=== PATIENT | male | born 1945 | race Caucasian/White ===

== ENCOUNTER 2019-03-12 10:58 | Inpatient (IN) | payer OTHER ==
[2019-03-12] VITALS (31 sets, daily range): BP systolic 63–101; BP diastolic 44–65
[~2019-03-12] VITALS: Ht 175.3 cm; Wt 126.0 kg
[2019-03-12] MEDS ORDERED: SODIUM CHLORIDE 0.9% 1,000 ML IVB ONE (11:05)
[2019-03-12] MEDS ORDERED: ETOMIDATE (2MG/ML) 20ML VIAL IV ONE ×2 (11:09→11:15)
[2019-03-12] MEDS ORDERED: SUCCINYLCHOLINE CHLORIDE 20 MG/ML 10ML VIAL IV ONE ×3 (11:10→12:30)
[2019-03-12] MEDS ORDERED: MIDAZOLAM DRIP 50 mg/50mL 50 ML IV ONE (11:16)
[2019-03-12] MEDS ORDERED: InsuLIN R (HUMAN) 100 UNITS in SODIUM CHL 0.9% 99 ML IV SCH ×2 (11:19→14:50)
[2019-03-12] MEDS ORDERED: DEXTROSE (50%) 50ML SYRG IV PRN ×2 (11:30→15:00)
[2019-03-12 12:00] LABS: Hematocrit 44.1 % (41.0-53.0); Hemoglobin 13.8 g/dL (13.5-17.5); Mean Corpuscular Hemoglobin 29.8 pg (28.0-32.0); Mean Corpuscular Hgb Conc. 31.2 g/dL (32.0-36.0); Mean Corpuscular Volume 95.6 fL (80.0-100.0); Platelet Count (auto) 261 10^3/uL (140-450); Red Blood Cells 4.61 10^6/uL (4.5-5.90); Red Cell Distribution Width 16.5 % (11.8-14.3); White Blood Cell 28.1 10^3/uL (4.4-10.8)
[2019-03-12 12:03] LABS: Basophils % (manual) 0 (0.0-2.0); Blast Cells 0; Eosinophils % (manual) 0 (0-7); Metamyelocytes % 0; Myelocytes % 0; Promyelocytes % 0; Reactive Lymphocytes 0
[2019-03-12] MEDS: ACCU-CHEK COMFORT CURVE STRIP VI SCH ×9 (12:12→23:59)
[2019-03-12 12:17] LABS: Band Neutrophils % (manual) 5; Lymphocytes % (manual) 4 (10.0-50.0); Monocytes % (manual) 4 (0-12)
[2019-03-12 12:26] LABS: Albumin 2.2 g/dL (3.4-5.0); Anion Gap 31 (5-15); Blood Urea Nitrogen 47 mg/dL (7-18); Calcium 9.4 mg/dL (8.5-10.1); Chloride 92 mmol/L (98-107); Magnesium 2.7 mg/dL (1.6-2.6); Potassium 3.4 mmol/L (3.5-5.1); Sodium 130 mmol/L (136-145)
[2019-03-12 12:29] LABS: Alanine Aminotransferase 14 U/L (16-61); Aspartate Aminotransferase 10 U/L (15-37); Bilirubin, Total 0.4 mg/dL (0.2-1.0); Blood Alcohol < 3.0 mg/dL (0-5); GFR African American 38 mL/min; GFR Non-African American 31 mL/min; Lactic Acid w/Reflex 2.5 mmol/L (0.4-2.0); Total Protein 6.7 g/dL (6.4-8.2)
[2019-03-12] MEDS: MIDAZOLAM DRIP 50 mg/50mL 50 ML IV SCH ×2 (12:30→23:36)
[2019-03-12 12:34] LABS: Alkaline Phosphatase 113 U/L (45-117)
[2019-03-12 12:38] LABS: BUN/Creatinine Ratio 21.3
[2019-03-12 12:39] LABS: Carbon Dioxide 7 mmol/L (21-32)
[2019-03-12] MEDS ORDERED: SODIUM BICARBONATE 8.4% INJ 50ML SYRINGE ONE ×2 (14:10→14:42)
[2019-03-12] MEDS ORDERED: SODIUM BICARBONATE 50ML VIAL 50 ML in SOD CHL 0.45% 1,000 ML IV SCH (14:30)
[2019-03-12] MEDS ORDERED: SODIUM BICARBONATE 8.4 % INJ 50ML VIAL IV ONE (14:30)
[2019-03-12] MEDS ORDERED: LEVOFLOXACIN 250MG 50 ML IV ONE (14:30)
[2019-03-12] MEDS ORDERED: CLINDAMYCIN 900MG IV 50 ML IV ONE (14:30)
[2019-03-12] MEDS ORDERED: LEVOFLOXACIN 500MG 100 ML IV SCH (14:31)
[2019-03-12] MEDS ORDERED: NOREPINEPHRINE 8 MG/250ML KIT 250 ML IV ONE (14:33)
[2019-03-12] MEDS ORDERED: MORPHINE SULF INJ 2 MG/ML SYRINGE 1ML IV PRN (15:00)
[2019-03-12] MEDS: SODIUM BICARBONATE 50ML VIAL 50 ML in SOD CHL 0.45% 1,000 ML IV SCH ×2 (15:00→22:00)
[2019-03-12] MEDS ORDERED: ALBUTEROL SULF 2.5 MG/0.5ML(0.5%) NEB SOLN NEB PRN (15:00)
[2019-03-12] MEDS ORDERED: PIPERACILLIN-TAZOB 3.375GM 100 ML IV ONE (15:00)
[2019-03-12] MEDS ORDERED: PROMETHAZINE HCL 25 MG/ML 1ML IV PRN (15:00)
[2019-03-12] MEDS ORDERED: NITROGLYCERIN 0.4 MG SL TAB SL PRN (15:00)
[2019-03-12] MEDS: FAMOTIDINE (10MG/ML) 2ML VL IV SCH (16:00)
[2019-03-12] MEDS: NOREPINEPHRINE 8 MG/250ML KIT 250 ML IV SCH (16:01)
--- NOTE | 2019-03-12 16:35 | NUR ---
REPORT Report received from Luh HARRIS awaiting for patient to arrive to room 107 to continue plan of care.
[2019-03-12] MEDS ORDERED: ATOR10TA52 PO (16:43)
[2019-03-12] MEDS ORDERED: TAMS0.4C36 PO (16:43)
[2019-03-12] MEDS ORDERED: DUTA0.5C11 PO (16:43)
[2019-03-12] MEDS ORDERED: FER325T PO (16:43)
[2019-03-12] MEDS ORDERED: METF-370 PO (16:43)
[2019-03-12 16:47] LABS: Amylase 382 U/L (25-115); Anion Gap 24 (5-15); Blood Urea Nitrogen 55 mg/dL (7-18); Calcium 9.8 mg/dL (8.5-10.1); Carbon Dioxide 11 mmol/L (21-32); Chloride 97 mmol/L (98-107); Sodium 132 mmol/L (136-145)
[2019-03-12] MEDS: POTASSIUM CHL 20MEQ/100ML 100 ML IV SCH ×2 (16:53→18:58)
[2019-03-12 16:57] LABS: BUN/Creatinine Ratio 23.6; GFR African American 35 mL/min; GFR Non-African American 29 mL/min; Lipase 5650 U/L (73-393)
[2019-03-12 17:15] LABS: Glucose 621 mg/dL (74-106); Potassium 2.8 mmol/L (3.5-5.1)
--- NOTE | 2019-03-12 18:15 | NUR ---
RECEIVED PATIENT Received patient from ER on [facility], placed in ICU bed and attached to bedside monitor for monitoring. Attempted to place NG/OG tube unsuccessful: oncoming nurse to be notified. No belongings with patient. Patient infusing Versed at 10mg, Levophed at 16mcg and .45NS with 1 amp of bicarb at 150ml/hr. SCD's on. Call light within reach and bed at lowest position.
[2019-03-12] MEDS: ALBUTEROL SULF 2.5 MG/0.5ML(0.5%) NEB SOLN NEB SCH (18:51)
[2019-03-12] MEDS: IPRATROPIUM BROM 0.5 MG/2.5ML INH SOL NEB SCH (18:51)
--- NOTE | 2019-03-12 19:00 | NUR ---
OPENING NOTE ASSUMED CARE OF PATIENT AT THIS TIME. REPORT RECEIVED FROM DAY SHIFT RN. POC REVIEWED. HEAD TO TOE ASSESSMENT COMPLETE, SEE INTERVENTION SPREADSHEET FOR COMPLETE DETAILS. RECEIVED PT INTUBATED, NO SEDATION. PUPILS 3 AND BRISK. NO COUGH OR GAG NOTED. RECEIVED PT ON LEVO AT 20 MCG, BICARB WITH 1 AMP AT 150 MLS/HR. RECEIVED PT IN A-FIB WITH RATE BETWEEN 110'S0-140'S. IV SITES BENIGN. NO ARCHER PRESENT. RECEIVED PT ON OMAR HUGGER. SUCTION AND BVM AT BEDSIDE. BED LOCKED AND IN LOWEST POSITION, SAFETY PRECAUTIONS IN PLACE. WILL MONITOR PT CAREFULLY.
[2019-03-12] MEDS: InsuLIN R (HUMAN) 100 UNITS in SODIUM CHL 0.9% 99 ML IV SCH (19:46)
--- NOTE | 2019-03-12 19:59 | NUR ---
DR. HILL RETURNED CONSULT PAGE. REQUEST FOR UROLOGY CART. SPOKE WITH GERIATRIC SOCIAL WORKER TO NOTIFY OF NEED FOR UROLOGY CART.
[2019-03-12] MEDS ORDERED: LIDOCAINE 2% JELLY 11ml (GLYDO) ONE (20:02)
[2019-03-12 20:03] LABS: BUN/Creatinine Ratio 25.3; Calcium 9.1 mg/dL (8.5-10.1)
[2019-03-12 20:13] LABS: Lactic Acid w/Reflex 2.8 mmol/L (0.4-2.0)
--- NOTE | 2019-03-12 20:14 | NUR ---
[address] by Dr[address] Davis. Michael think liquid coming from chaudhary tubing. Pt tolerated well.
[2019-03-12 20:42] LABS: Potassium 2.7 mmol/L (3.5-5.1)
--- NOTE | 2019-03-12 20:47 | NUR ---
SEDATION RESTARTED, VERSED STARTED AT 5 MG/HR. PT BREATHING OVER VENT AT RR 22. VENTILATOR ALARM SOUNDING.
[2019-03-12] MEDS: PIPERACILLIN-TAZOB 3.375GM 100 ML IV SCH (21:16)
[2019-03-12] MEDS ORDERED: InsuLIN REG 1unit/0.01ml Soln (100units/ml) ONE (21:45)
[2019-03-12] MEDS ORDERED: CLINDAMYCIN 600MG IV 50 ML IV SCH (22:00)
--- NOTE | 2019-03-12 22:29 | NUR ---
TEMP RECTAL TEMP 98.1. WARMING MEASURES D/C AT THIS TIME.
--- NOTE | 2019-03-12 22:59 | NUR ---
APS REPORT SPOKE WITH PARDEEP, . REPORT MADE. CASE #[id number]
--- NOTE | 2019-03-12 23:12 | NUR ---
URINE SAMPLE COLLECTED AND SENT TO LAB AT THIS TIME.
[2019-03-12 23:50] LABS: Amphetamine Screen, Urine NEGATIVE (NEGATIVE); Barbiturate Scree,Urine NEGATIVE (NEGATIVE); Benzodiazephine Screen, Urine POSITIVE (NEGATIVE); Cannabinoid Screen, Urine NEGATIVE (NEGATIVE); Cocaine Screen, Urine NEGATIVE (NEGATIVE); Opiate Scree,Urine NEGATIVE (NEGATIVE); Phencyclidine Screen, Urine NEGATIVE (NEGATIVE)
[2019-03-12 23:51] LABS: Urine Bacteria MANY /hpf (None Seen); Urine Blood 3+ /uL (Negative); Urine Specific Gravity 1.019 (1.001-1.035); Urine WBC 8341 /hpf (0 - 3); Urine WBC Clumps PRESENT /hpf (None Seen)
[2019-03-12 23:56] LABS: Protein, Urine 919.8 mg/dL (0.0-11.9)
[2019-03-13] VITALS (105 sets, daily range): BP systolic 81–137; BP diastolic 52–89
[2019-03-13] MEDS: CLINDAMYCIN 600MG IV 50 ML IV SCH ×2 (00:09→08:42)
[2019-03-13] MEDS: ALBUTEROL SULF 2.5 MG/0.5ML(0.5%) NEB SOLN NEB SCH ×4 (00:18→18:50)
[2019-03-13] MEDS: IPRATROPIUM BROM 0.5 MG/2.5ML INH SOL NEB SCH ×4 (00:19→18:50)
--- NOTE | 2019-03-13 00:29 | NUR ---
HOSPITALIST PAGED TO NOTIFY OF K RESULTS. AWAITING RESPONSE
--- NOTE | 2019-03-13 00:44 | NUR ---
HOSPITALIST RETURNED PAGE ORDERS RECEIVED FOR 40 MEQ K AND 1X DOSE OF ALBUMIN 5% 250 MLS. WILL CARRY OUT ORDER.
[2019-03-13] MEDS ORDERED: ALBUMIN 5% 250 ML IV ONE ×2 (00:45→00:47)
[2019-03-13] MEDS ORDERED: POTASSIUM CHL 20MEQ/100ML 200 ML IV ONE (00:47)
--- NOTE | 2019-03-13 01:05 | NUR ---
TEMP RECTAL TEMP 100.2. COOLING MEASURES INITIATED.
[2019-03-13] MEDS: POTASSIUM CHL 20MEQ/100ML 100 ML IV SCH ×2 (01:06→02:50)
[2019-03-13] MEDS: ACCU-CHEK COMFORT CURVE STRIP VI SCH ×11 (01:36→21:50)
[2019-03-13] MEDS: PIPERACILLIN-TAZOB 3.375GM 100 ML IV SCH ×2 (02:50→10:15)
[2019-03-13] MEDS: FAMOTIDINE (10MG/ML) 2ML VL IV SCH ×2 (02:50→10:12)
[2019-03-13 04:30] LABS: Basophils # (auto) 0 uL; Basophils % (auto) 0.1 % (0.0-2.0); Eosinophils # (auto) 0 uL; Hematocrit 40.8 % (41.0-53.0); Lymphocytes # (auto) 0.6 uL; Lymphocytes % (auto) 2.4 % (10.0-50.0); Mean Corpuscular Hemoglobin 29.8 pg (28.0-32.0); Mean Corpuscular Hgb Conc. 34.3 g/dL (32.0-36.0); Mean Corpuscular Volume 86.8 fL (80.0-100.0); Monocytes # (auto) 1.2 uL; Monocytes % (auto) 4.8 % (0.0-12.0); Neutrophils # (auto) 22.6 uL; Neutrophils % (auto) 92.7 % (37.0-80.0); Nucleated Red Blood Cells % 0.1 %; Platelet Count (auto) 177 10^3/uL (140-450); Red Cell Distribution Width 15.9 % (11.8-14.3); White Blood Cell 24.4 10^3/uL (4.4-10.8)
[2019-03-13 04:43] LABS: Albumin 2.3 g/dL (3.4-5.0); BUN/Creatinine Ratio 22.9; Calcium 9.7 mg/dL (8.5-10.1); Potassium 3.5 mmol/L (3.5-5.1)
[2019-03-13 04:50] LABS: Bilirubin, Total 0.5 mg/dL (0.2-1.0); Total Protein 6.8 g/dL (6.4-8.2)
[2019-03-13 05:04] LABS: Uric Acid 12.1 mg/dL (3.5-7.2)
[2019-03-13 05:25] LABS: Phosphorus 1.2 mg/dL (2.5-4.90)
[2019-03-13] MEDS: SODIUM BICARBONATE 50ML VIAL 50 ML in SOD CHL 0.45% 1,000 ML IV SCH ×2 (05:37→12:03)
--- NOTE | 2019-03-13 07:40 | NUR ---
ASSESS- PT. LYING IN BED ON VENT SIZE # 8.0 ET, 26 AT THE LIP, AC-14, TV-500, PEEP-5, FIO2-50%. LUNGS CLEAR GEMINI. INSPIRATORY AND EXPIRATORY. PT. HAS HYPOACTIVE GAG/COUGH REFLEX. PUPILS 3 AND BRISK GEMINI. VERSED GTT. AT 5MG./HR. EYES CLOSED. NO MOVEMENT OF EXTREMITIES SEEN. RESPONDS TO PAINFUL/TACTILE STIMULI. TLC LT. SUBCLAVIAN INTACT. LEVOPHED GTT. AT 25 MCG. RADIAL PULSES STRONG, PALPABLE GEMINI. DORSALIS PEDAL PULSES WEAK, PALPABLE GEMINI. 1 PLUS NON-PITTING EDEMA FT. GEMINI. SCD'S GEMINI. LE. CAPILLARY REFILL >3 SEC. FT. GEMINI. A-FIB, HR 120'S-130'S. RECTAL PROBE IN PLACE. SCROTOM AND PERIA AREA MACERATED. LT. HIP IWTH MACERATION. ABD. FOLD WITH ERYTHEMA. F/C TO GRAVITY WITH BROWN/RED URINE WITH SEDIMENT, CLOTS, CLOUDY.
[2019-03-13 07:44] LABS: Glucose 747 mg/dL (74-106)
[2019-03-13] MEDS: BELLADONNA ALKAL/OPIUM (16.2/30MG) RECT SUPP PR SCH (10:00)
[2019-03-13] MEDS: MIDAZOLAM DRIP 50 mg/50mL 50 ML IV SCH ×2 (10:12→18:10)
--- NOTE | 2019-03-13 10:15 | NUR ---
Family updated on pt status Family of TONI LESTER updated on patient's status and condition. All questions and concerns addressed. SON verbalized understanding. VISITING AT THE BS.
--- NOTE | 2019-03-13 10:40 | NUR ---
DR. AREVALO Provider/Hospitalist at bedside. GAVE UPDATE ON PT. NEW ORDERS RECEIVED.
[2019-03-13] MEDS: NOREPINEPHRINE 8 MG/250ML KIT 250 ML IV SCH (10:41)
[2019-03-13 10:49] LABS: BUN/Creatinine Ratio 24.7; Calcium 9.5 mg/dL (8.5-10.1); Potassium 3.5 mmol/L (3.5-5.1)
[2019-03-13] MEDS ORDERED: POTASSIUM PHOSPHATE 44 MEQ in D5W 5% 250 ML IV ONE (11:00)
[2019-03-13] MEDS ORDERED: ALBUMIN 25% 100 ML IV ONE (11:00)
--- NOTE | 2019-03-13 11:00 | NUR ---
WOUND CARE NOTE: PATIENT ADMITTED TO [facility] WITH DIAGNOSIS OF DKA, ALOC, UTI, SEPTIC SHOCK. CURRENT KRISTINA SCORE IS 11. PATIENT NOTED TO HAVE RED RASH UPON ADMIT, WOUND CONSULT ORDERED, WOUND PHOTOS TAKEN FOR REFERENCE AT THAT TIME. PATIENT IS NOTED TO HAVE AN INTERTRIGINOUS RASH AND MASD TO THE LEFT HIP, SACRUM/BUTTOCKS, GROIN, SCROTUM, ABDOMEN. SKIN IS BRIGHT RED WITH INTERTRIGO, SKIN IS MOIST PATIENT WOULD BENEFIT FROM BID APPLICATIONS WITH NYSTATIN POWDER BID TO THESE SKIN AREAS. SKIN/WOUND CARE PLAN IMPLEMENTED. DIETARY CONSULT ORDERED FOR LOW KRISTINA SCORES 11. PATIENT SHOULD HAVE FREQUENT TURN SCHEDULE Q 2 HOURS, PRN CONDITION PERMITS, WITH PRESSURE REDISTRIBUTION USING PILLOWS/WEDGES, OPTIFOAM GENTLE SACRAL DRESSING PREVENTATIVE, CONTINUED MONITORING BY WOUND CARE TEAM. Addendum: 03/13/19 at 1508 by Kristi Lakhani RN Amended: Links added.
--- NOTE | 2019-03-13 11:45 | NUR ---
DR. Surinder VELAZQUEZ Provider/Hospitalist at bedside. GAVE UPDATE ON PT. NEW ORDERS RECEIVED.
--- NOTE | 2019-03-13 12:00 | NUR ---
YULIET RT ADVANCED ET [address] VELAZQUEZ. 27 AT THE LIP NOW. CXR ORDERED PER MD. TV CHANGED TO 600 PER MD.
--- NOTE | 2019-03-13 12:05 | NUR ---
DR. DUMAS Provider/Hospitalist at bedside. GAVE UPDATE ON PT. NEW ORDERS RECEIVED.
[2019-03-13] MEDS ORDERED: HEPARIN DRIP/D5W 100UNITS/ML 250 ML IV SCH (12:08)
[2019-03-13] MEDS ORDERED: HEPARIN SODIUM (PORCINE) 5000 UNITS/ML 1ML VIAL IV ONE (12:15)
[2019-03-13] MEDS ORDERED: AMIODARONE HCL 150 MG in D5W 5% 100 ML IV ONE (12:15)
[2019-03-13] MEDS ORDERED: AMIODARONE HCL 900 MG in DEXTROSE 500 ML IV SCH (12:18)
[2019-03-13] MEDS: InsuLIN R (HUMAN) 100 UNITS in SODIUM CHL 0.9% 99 ML IV SCH (13:18)
[2019-03-13] MEDS ORDERED: VANCOMYCIN PER PHARMACY 0 MG IV SCH (13:45)
[2019-03-13] MEDS ORDERED: DEXTROSE (50%) 50ML SYRG IV PRN (14:00)
[2019-03-13] MEDS: HEPARIN DRIP/D5W 100UNITS/ML 250 ML IV SCH (14:04)
--- NOTE | 2019-03-13 14:20 | NUR ---
DR. DEL CASTILLO Provider/Hospitalist at bedside. GAVE UPDATE ON PT.
[2019-03-13] MEDS: SODIUM CHLORIDE 0.9% 1,000 ML IV SCH ×2 (14:25→19:56)
[2019-03-13] MEDS ORDERED: VANCOMYCIN 1,250 MG in D5W 5% 250 ML IV ONE (14:30)
--- NOTE | 2019-03-13 16:00 | NUR ---
PT'S. RR UPPER 20'S TO LOW 30'S. TITRATING VERSED GTT. UP TO HELP LOWER RESP. RATE.
[2019-03-13 16:19] LABS: Basophils # (auto) 0 uL; Basophils % (auto) 0.1 % (0.0-2.0); Eosinophils # (auto) 0 uL; Hematocrit 36.4 % (41.0-53.0); Hemoglobin 12.3 g/dL (13.5-17.5); Lymphocytes # (auto) 0.4 uL; Lymphocytes % (auto) 2.3 % (10.0-50.0); Mean Corpuscular Hemoglobin 29.4 pg (28.0-32.0); Mean Corpuscular Hgb Conc. 33.8 g/dL (32.0-36.0); Monocytes # (auto) 0.8 uL; Monocytes % (auto) 4.6 % (0.0-12.0); Nucleated Red Blood Cells % 0.1 %; Platelet Count (auto) 114 10^3/uL (140-450); Red Blood Cells 4.18 10^6/uL (4.5-5.90); Red Cell Distribution Width 16.4 % (11.8-14.3); White Blood Cell 18.3 10^3/uL (4.4-10.8)
[2019-03-13 16:32] LABS: INR 1.17 (0.9-1.15); Partial Thromboplastin Time 42.3 sec (23.64-32.05)
[2019-03-13] MEDS: InsuLIN REG 1unit/0.01ml Soln (100units/ml) SC SCH ×2 (17:02→21:49)
--- NOTE | 2019-03-13 18:15 | NUR ---
VERSED GTT. TITRATED UP TO 11 MG./HR. RR REMAINS UPPER 20'S TO LOW 30'S.
--- NOTE | 2019-03-13 19:20 | NUR ---
OPEN NOTE RECEIVED REPORT ON FULL CODE ICU PATIENT. INTUBATED 8.0 27@ LIP AND SEDATED ON VERSED. TOLERATING VENT WITH PERIODS OF TACHYPNEA. BILATERAL LUNG SOUND AND EVEN CHEST RISE AND FALL. AFIB 107 BP 127/75 ON LEVO PHED. PULSES PALPABLE THROUGHOUT. 20FR ARCHER NOT PATENT. WILL PAGE UROLOGIST R/T POSSIBLE CLOG. LEFT SUBCLAVIAN TLC CDI. BILAT PERIPHERAL IV'S CDI. MULTIPLE AREAS OF CONCERN ON SKIN, SEE INTERVENTIONS FOR MORE INFORMATION. BED SET TO LOWEST POSITION. ALL FALL AND SAFETY PRECAUTIONS IN PLACE.
--- NOTE | 2019-03-13 19:53 | NUR ---
PAGED UROLOGIST UPON ASSESSMENT OF PATIENT, CATHETER IS LEAKING ONTO PATENT. UNABLE TO IRRIGATE R/T POSSIBLE CLOG. PAGED UROLOGIST TECHNICAL SOLUTIONS CONSULTANT. LEFT MESSAGE WITH DANICA AT ANSWERING SERVICE.
[2019-03-13] MEDS: AMIODARONE HCL 900 MG in DEXTROSE 500 ML IV SCH (20:48)
[2019-03-13 20:49] LABS: INR 1.18 (0.9-1.15); Partial Thromboplastin Time 52.1 sec (23.64-32.05)
--- NOTE | 2019-03-13 21:18 | NUR ---
KARY HOSPITALIST UROLOGIST NOT RESPONDING FOR ARCHER CATH. CAT CLEARY HOSPITALIST.
[2019-03-13] MEDS: MEROPENEM 1GM IVPB 100 ML IV SCH (21:45)
[2019-03-13] MEDS: NYSTATIN TOPICAL POWDER 15GM TOP SCH (21:46)
--- NOTE | 2019-03-13 22:00 | NUR ---
HEP DRIP PTT 52. ORDERED NEW PTT. WITHIN THERAPEUTIC LEVEL.
--- NOTE | 2019-03-13 22:50 | NUR ---
ARCHER UPDATE ARCHER SPONTANEOUS BECAME PATENT
--- NOTE | 2019-03-13 23:20 | NUR ---
UROLOGIST CALLED BACK MD HILL UPDATED ON PATIENT STATUS. OF CLOTTED AGAIN AND UN ABLE TO UNCLOG. OKAY PER UROLOGIST TO REPLACE ARCHER CATH.
[2019-03-14] VITALS (100 sets, daily range): BP systolic 84–138; BP diastolic 49–79
[2019-03-14] MEDS: SODIUM CHLORIDE 0.9% 1,000 ML IV SCH ×5 (00:06→20:00)
[2019-03-14] MEDS: MIDAZOLAM DRIP 50 mg/50mL 50 ML IV SCH ×6 (00:06→22:12)
[2019-03-14] MEDS: IPRATROPIUM BROM 0.5 MG/2.5ML INH SOL NEB SCH ×4 (00:30→19:03)
[2019-03-14] MEDS: ALBUTEROL SULF 2.5 MG/0.5ML(0.5%) NEB SOLN NEB SCH ×4 (00:30→19:03)
--- NOTE | 2019-03-14 01:57 | NUR ---
HELD HEPARIN DRIP PER LARGE AMOUNTS OF HEMATURIA. HELD HEPARIN DRIP PER PROTOCOL.
[2019-03-14 02:36] LABS: Basophils # (auto) 0 uL; Basophils % (auto) 0.1 % (0.0-2.0); Eosinophils # (auto) 0 uL; Hematocrit 35.5 % (41.0-53.0); Hemoglobin 11.7 g/dL (13.5-17.5); Lymphocytes # (auto) 0.5 uL; Lymphocytes % (auto) 2.2 % (10.0-50.0); Mean Corpuscular Hemoglobin 29.1 pg (28.0-32.0); Monocytes # (auto) 0.8 uL; Monocytes % (auto) 3.6 % (0.0-12.0); Neutrophils # (auto) 19.3 uL; Neutrophils % (auto) 94.1 % (37.0-80.0); Platelet Count (auto) 118 10^3/uL (140-450); Red Blood Cells 4.04 10^6/uL (4.5-5.90); Red Cell Distribution Width 16.3 % (11.8-14.3); White Blood Cell 20.6 10^3/uL (4.4-10.8)
[2019-03-14 02:46] LABS: Albumin 1.9 g/dL (3.4-5.0); BUN/Creatinine Ratio 19.7; Calcium 8.9 mg/dL (8.5-10.1); Magnesium 2.1 mg/dL (1.6-2.6); Potassium 3.4 mmol/L (3.5-5.1)
[2019-03-14 02:49] LABS: Bilirubin, Total 0.5 mg/dL (0.2-1.0); Total Protein 5.8 g/dL (6.4-8.2)
[2019-03-14 02:56] LABS: INR 1.16 (0.9-1.15); Partial Thromboplastin Time 55.6 sec (23.64-32.05)
--- NOTE | 2019-03-14 04:07 | NUR ---
COMPLETE BED BATH GIVEN LINENS CHANGED AND BED BATH GIVEN. SKIN REASSESSED AND BLEEDING TO SCROTUM INCREASED. PLACED ABDOMINAL PAD TO SLOW BLEEDING.
--- NOTE | 2019-03-14 05:28 | NUR ---
PATIENT HAD EKG CHANGES PATIENT BECAME TACHYCARDIC IN THE 160'S. 12 LEAD EKG COMPLETED SHOWING ATRIAL FIBULATION. GAVE METOPROLOL PRN AND PATIENT REMAINS IN 140'S A FIB. KARY HOSPITALIST AND BILLING AND ACCOUNTING STAFF ASSISTANT GRACE
[2019-03-14] MEDS: METOPROLOL TARTRATE 1MG/1ML-5ML VIAL IV PRN (05:29)
--- NOTE | 2019-03-14 06:23 | NUR ---
BLOOD SUGAR ELEVATED BS 408 PAGED HOSPITALIST.
[2019-03-14] MEDS: ACCU-CHEK COMFORT CURVE STRIP VI SCH ×4 (06:46→22:26)
[2019-03-14] MEDS: InsuLIN REG 1unit/0.01ml Soln (100units/ml) SC SCH ×4 (06:46→22:26)
--- NOTE | 2019-03-14 06:58 | NUR ---
MD DEL CASTILLO CALLED BACK UPDATED MD ON PATIENT STATUS. RECEIVED ORDERS FOR 20K IVPB X1 AND DIGOXIN 0.5MG IV PUSH X1
[2019-03-14] MEDS ORDERED: POTASSIUM CHL 20MEQ/100ML 100 ML IV ONE ×2 (07:00→16:00)
[2019-03-14] MEDS ORDERED: DIGOXIN (250MCG/ML) 2 ML AMPULE IV ONE (07:00)
--- NOTE | 2019-03-14 07:30 | NUR ---
ASSESS- PT. LYING IN BED ON VENT SIZE #8.0 ET, 27 AT THE LIP, AC-14, TV-500, PEEP-5, FIO2-30%. LUNGS CLEAR GEMINI. INSPIRATORY AND EXPIRATORY, DIMINISHED THROUGHOUT. PT. HAS GAG/COUGH REFLEX. VERSED GTT. AT 15 MG./HR. PUPILS 3 AND BRISK GEMINI. ABD. SOFT, LG. BOWEL SOUNDS ALL FOUR QUADRANTS. F/C TO GRAVITY WITH DK. RED/LANI URINE WITH SEDIMENT WITH BLOOD CLOTS. RADIAL PULSES STRONG, PALPABLE GEMINI. DORSALIS PEDAL PULSES WEAK, PALPABLE GEMINI. 1 PLUS NON-PITTING EDEMA FT. GEMINI. SCD'S GEMINI. LE. TLC LT. SUBCLAVIAN INTACT. AMIODARONE GTT. AT 0.5 MG./MIN. A-FIB, HR 120'S WITHOUT ECTOPY. LEVOPHED GTT. AT 8 MCG. SBP 90'S-100'S. HEPARIN GTT. OFF DUE TO HEMATURIA IN F/C. RECTAL PROBE IN PLACE. SCROTOM AND QUAN AREA WITH MACERATION WITH ERYTHEMA. LT. HIP MACERATED, OPEN TO AIR. LT. BUTTOCK WITH ERYTHEMA. OPTIFOAM TO SACRUM IN PLACE PREVENTATIVE.
[2019-03-14] MEDS: FAMOTIDINE (10MG/ML) 2ML VL IV SCH (09:37)
[2019-03-14] MEDS: NYSTATIN TOPICAL POWDER 15GM TOP SCH ×2 (09:45→22:12)
[2019-03-14] MEDS: MEROPENEM 1GM IVPB 100 ML IV SCH ×2 (09:45→22:12)
[2019-03-14] MEDS: BELLADONNA ALKAL/OPIUM (16.2/30MG) RECT SUPP PR SCH (09:45)
--- NOTE | 2019-03-14 09:50 | NUR ---
DR. DEL CASTILLO Provider/Hospitalist at bedside.
--- NOTE | 2019-03-14 09:50 | NUR ---
DR. AREVALO Provider/Hospitalist at bedside. GAVE UPDATE ON PT.
[2019-03-14] MEDS ORDERED: HEPARIN DRIP/D5W 100UNITS/ML 250 ML IV SCH (09:52)
[2019-03-14] MEDS ORDERED: HEPARIN SODIUM (PORCINE) 5000 UNITS/ML 1ML VIAL IV ONE (10:00)
[2019-03-14] MEDS ORDERED: VANCOMYCIN 1GM/250ML 250 ML IV ONE (10:15)
--- NOTE | 2019-03-14 10:15 | NUR ---
DR. DUMAS Provider/Hospitalist at bedside. GAVE UPDATE ON PT. NEW ORDERS RECEIVED.
--- NOTE | 2019-03-14 10:35 | NUR ---
TECH AT BS FOR 2D ECHO.
[2019-03-14 10:42] LABS: Basophils # (auto) 0 uL; Basophils % (auto) 0.1 % (0.0-2.0); Eosinophils # (auto) 0 uL; Hematocrit 35.6 % (41.0-53.0); Hemoglobin 11.8 g/dL (13.5-17.5); Lymphocytes # (auto) 0.5 uL; Lymphocytes % (auto) 2.6 % (10.0-50.0); Mean Corpuscular Hemoglobin 29.1 pg (28.0-32.0); Mean Corpuscular Hgb Conc. 33.2 g/dL (32.0-36.0); Mean Corpuscular Volume 87.8 fL (80.0-100.0); Monocytes # (auto) 0.5 uL; Monocytes % (auto) 2.9 % (0.0-12.0); Neutrophils # (auto) 16.8 uL; Neutrophils % (auto) 94.4 % (37.0-80.0); Platelet Count (auto) 107 10^3/uL (140-450); Red Blood Cells 4.06 10^6/uL (4.5-5.90); Red Cell Distribution Width 16.6 % (11.8-14.3); White Blood Cell 17.8 10^3/uL (4.4-10.8)
[2019-03-14 10:57] LABS: INR 1.13 (0.9-1.15); Partial Thromboplastin Time 35.3 sec (23.64-32.05)
--- NOTE | 2019-03-14 11:30 | NUR ---
Called/paged Dr. DUMAS called re:. Waiting for call back. Continue care.
--- NOTE | 2019-03-14 11:36 | NUR ---
returned call Dr. DUMAS returned call, updated on patient status and reason for call. Continue care.
--- NOTE | 2019-03-14 12:00 | NUR ---
SBP ONE TEENS TO 120'S. SLOWLY TITRATING LEVOPHED GTT. DOWN TO KEEP SBP >90. MONITORING BP.
[2019-03-14] MEDS: HEPARIN DRIP/D5W 100UNITS/ML 250 ML IV SCH (12:53)
--- NOTE | 2019-03-14 13:02 | NUR ---
Called/paged Dr. DUMAS called re:. Waiting for call back. Continue care.
--- NOTE | 2019-03-14 13:08 | NUR ---
returned call Dr. DUMAS returned call, updated on patient status and reason for call, orders received. Continue care.
[2019-03-14] MEDS: AMIODARONE HCL 900 MG in DEXTROSE 500 ML IV SCH (13:33)
--- NOTE | 2019-03-14 13:50 | NUR ---
Nutrition Assessment Notes Est energy needs: 3955-6952 kcals (14-18 kcals/kgBW) Est protein needs: 91-113 gms/day (0.8-1.0 gm/kgBW) Will continue to monitor and reassess prn Addendum: 03/14/19 at [address] Amended: Links added.
--- NOTE | 2019-03-14 14:00 | NUR ---
WHEN URINE OUTPUT DECREASES F/C HAS BEEN IRRIGATED TWICE THIS SHIFT WITH 10 CC STERILE SALINE. BLOOD CLOTS COMING OUT OF F/C WITH LT. LANI URINE DRAINING.
[2019-03-14] MEDS: NOREPINEPHRINE 8 MG/250ML KIT 250 ML IV SCH (14:15)
--- NOTE | 2019-03-14 14:40 | NUR ---
SONS VISITING AT THE BS.
--- NOTE | 2019-03-14 15:35 | NUR ---
DR. Surinder VELAZQUEZ Provider/Hospitalist at bedside. GAVE UPDATE ON PT. NEW ORDER RECEIVED.
[2019-03-14] MEDS ORDERED: SODIUM BICARBONATE 8.4 % INJ 50ML VIAL IV ONE (16:30)
--- NOTE | 2019-03-14 18:10 | NUR ---
TITRATED LEVOPHED GTT. OFF. MONITORING BP.
--- NOTE | 2019-03-14 19:15 | NUR ---
OPEN NOTE RECEIVED REPORT ON FULL CODE ICU PATIENT. INTUBATED 8.0 27@ LIP AND SEDATED ON VERSED. TOLERATING VENT. BILATERAL LUNG SOUND AND EVEN CHEST RISE AND FALL. AFIB 100's BP 87/75 OFF LEVOPHED. STARTED LEVOPHED AT 2 TO MAINTAIN SBP >90MMHG. PULSES PALPABLE THROUGHOUT. 20FR ARCHER PATENT DRAINING HEMATURIA WITH PERIODS OF PURULENT MUCUS THREADS. LEFT SUBCLAVIAN TLC CDI. BILAT PERIPHERAL IV'S CDI. MULTIPLE AREAS OF CONCERN ON SKIN, SEE INTERVENTIONS FOR MORE INFORMATION. BED SET TO LOWEST POSITION. ALL FALL AND SAFETY PRECAUTIONS IN PLACE.
[2019-03-14] MEDS ORDERED: INSULIN LANTUS (GLARGINE) 1 /0.01ml (100units/ml) SC SCH (22:00)
[2019-03-15] VITALS (102 sets, daily range): BP systolic 90–120; BP diastolic 51–75
[2019-03-15] MEDS: ALBUTEROL SULF 2.5 MG/0.5ML(0.5%) NEB SOLN NEB SCH ×4 (00:43→18:52)
[2019-03-15] MEDS: IPRATROPIUM BROM 0.5 MG/2.5ML INH SOL NEB SCH ×4 (00:43→18:51)
[2019-03-15] MEDS: SODIUM CHLORIDE 0.9% 1,000 ML IV SCH ×5 (01:00→18:10)
--- NOTE | 2019-03-15 04:00 | NUR ---
PARTIAL BED BATH COMPLETED BED BATH WITH PARTIAL LINEN CHANGE. SKIN REASSESSED AND NO NEW BREAK DOWN NOTED.
[2019-03-15 04:26] LABS: Basophils # (auto) 0 uL; Basophils % (auto) 0.1 % (0.0-2.0); Eosinophils # (auto) 0 uL; Hematocrit 33.9 % (41.0-53.0); Hemoglobin 11.4 g/dL (13.5-17.5); Lymphocytes # (auto) 0.5 uL; Lymphocytes % (auto) 3.2 % (10.0-50.0); Mean Corpuscular Hemoglobin 29.6 pg (28.0-32.0); Mean Corpuscular Hgb Conc. 33.7 g/dL (32.0-36.0); Mean Corpuscular Volume 87.8 fL (80.0-100.0); Monocytes # (auto) 0.5 uL; Monocytes % (auto) 3.5 % (0.0-12.0); Neutrophils # (auto) 14.7 uL; Neutrophils % (auto) 93.2 % (37.0-80.0); Platelet Count (auto) 98 10^3/uL (140-450); Red Blood Cells 3.86 10^6/uL (4.5-5.90); Red Cell Distribution Width 16.8 % (11.8-14.3); White Blood Cell 15.8 10^3/uL (4.4-10.8)
[2019-03-15 04:53] LABS: Albumin 1.7 g/dL (3.4-5.0); Calcium 8.9 mg/dL (8.5-10.1); Magnesium 2.1 mg/dL (1.6-2.6); Potassium 3.4 mmol/L (3.5-5.1)
[2019-03-15 04:56] LABS: BUN/Creatinine Ratio 20.3; Bilirubin, Total 0.4 mg/dL (0.2-1.0); Total Protein 5.1 g/dL (6.4-8.2)
[2019-03-15] MEDS: MIDAZOLAM DRIP 50 mg/50mL 50 ML IV SCH ×3 (05:05→12:11)
[2019-03-15 05:33] LABS: INR 1.13 (0.9-1.15)
[2019-03-15] MEDS: ACCU-CHEK COMFORT CURVE STRIP VI SCH ×4 (06:32→21:57)
[2019-03-15] MEDS: InsuLIN REG 1unit/0.01ml Soln (100units/ml) SC SCH ×4 (06:32→21:56)
--- NOTE | 2019-03-15 07:45 | NUR ---
SHIFT OPENING NOTE REPORT RECEIVED FROM SYNCHRO ASSEMBLER RN. PATIENT ON MECHANICAL VENTILATOR , SEDATED WTIH VERSED, LUNGS CLEAR AND DIMINISHED THROUGHOUT. ABDOMEN LARGE, ROUND AND SOFT, ARCHER DRAINING YELLOW URINE WITH SEDIMENT, PURULENT DRAINAGE NOTED FROM MEATUS. SKIN INTEGRITY SEE INTERVENTION. SCD'S BILATERALLY TO LOWER EXTREMITIES.
--- NOTE | 2019-03-15 08:55 | NUR ---
DR. VELAZQUEZ UPDATED ON PATIENT STATUS NO ORDERS RECEIVED AT THIS TIME
[2019-03-15] MEDS: NYSTATIN TOPICAL POWDER 15GM TOP SCH ×2 (09:25→21:57)
[2019-03-15] MEDS: BELLADONNA ALKAL/OPIUM (16.2/30MG) RECT SUPP PR SCH (09:25)
[2019-03-15] MEDS: MEROPENEM 1GM IVPB 100 ML IV SCH (09:25)
[2019-03-15] MEDS: FAMOTIDINE (10MG/ML) 2ML VL IV SCH (09:25)
--- NOTE | 2019-03-15 11:03 | NUR ---
DR. DEL CASTILLO AT BEDSIDE
[2019-03-15] MEDS ORDERED: AMIODARONE HCL 200 MG TAB PO SCH (11:15)
[2019-03-15] MEDS ORDERED: POTASSIUM EFFERVESENT TAB 25 MEQ GT ONE (11:30)
--- NOTE | 2019-03-15 11:50 | NUR ---
DR. WEBER AT BEDSIDE
[2019-03-15] MEDS ORDERED: VANCOMYCIN 1GM/250ML 250 ML IV SCH (13:00)
[2019-03-15] MEDS: HEPARIN DRIP/D5W 100UNITS/ML 250 ML IV SCH (13:45)
--- NOTE | 2019-03-15 13:55 | NUR ---
DR. MAYES AT BEDSIDE
[2019-03-15] MEDS ORDERED: MICAFUNGIN SODIUM 100 MG in SODIUM CHL 0.9% 100 ML IV SCH (14:00)
[2019-03-15] MEDS ORDERED: Glucerna 1.2 Cal 1Liter BOTTLE GT SCH (14:15)
--- NOTE | 2019-03-15 14:55 | NUR ---
PARTIAL LINEN CHANGE PERFORMED AT THIS TIME
[2019-03-15] MEDS: PROPOFOL 100 ML IV SCH ×3 (15:09→23:52)
[2019-03-15] MEDS: NOREPINEPHRINE 8 MG/250ML KIT 250 ML IV SCH ×2 (15:15→17:39)
[2019-03-15] MEDS ORDERED: VANCOMYCIN PER PHARMACY 0 MG IV SCH (15:45)
[2019-03-15] MEDS: DexMEDEtomidine 400 MCG in D5W 5% 96 ML IV SCH (15:49)
--- NOTE | 2019-03-15 15:54 | NUR ---
VERSED PER DR. MAYES TITRATE OFF VERSED, CPAP PATIENT WHEN AWAKE AND FOLLOWING COMMANDS
--- NOTE | 2019-03-15 17:06 | NUR ---
DR. HILL AT BEDSIDE
--- NOTE | 2019-03-15 19:15 | NUR ---
OPEN NOTE RECEIVED REPORT ON FULL CODE ICU PATIENT. INTUBATED 8.0 27@ LIP AND SEDATED ON VERSED. TOLERATING VENT. BILATERAL LUNG SOUND AND EVEN CHEST RISE AND FALL. NSR 80's BP 107/63 ON LEVOPHED. PULSES PALPABLE THROUGHOUT. 20FR ARCHER PATENT DRAINING PURULENT MUCUS THREADS.RIGHT NGT AUSCULTATED AND ASPIRATED FOR CORRECT PLACEMENT. LEFT SUBCLAVIAN TLC CDI. LEFT AC 18G IV CDI. MULTIPLE AREAS OF CONCERN ON SKIN, SEE INTERVENTIONS FOR MORE INFORMATION. BED SET TO LOWEST POSITION. ALL FALL AND SAFETY PRECAUTIONS IN PLACE. Addendum: 03/15/19 at 2026 by Alireza Calloway RN RN PATIENT SEDATED ON PROPOFOL NOT VERSED.
[2019-03-15] MEDS: INSULIN LANTUS (GLARGINE) 1 /0.01ml (100units/ml) SC SCH (21:57)
--- NOTE | 2019-03-15 23:00 | NUR ---
PATIENT TAKEN TO CT PATIENT TOLERATED WELL.
[2019-03-16] VITALS (105 sets, daily range): BP systolic 91–133; BP diastolic 58–102
--- NOTE | 2019-03-16 | NUR ---
BED BATH COMPLETE BED BATH GIVEN. SKIN REASSESSED AND NO NEW BREAK DOWN NOTED. OPTIFOAM PLACED TO LEFT BUTTOCK FOR PREVENTIVE MEASURES. PATIENT TOLERATED WELL.
[2019-03-16] MEDS: ALBUTEROL SULF 2.5 MG/0.5ML(0.5%) NEB SOLN NEB SCH ×4 (00:12→18:26)
[2019-03-16] MEDS: IPRATROPIUM BROM 0.5 MG/2.5ML INH SOL NEB SCH ×4 (00:12→18:26)
[2019-03-16] MEDS: SODIUM CHLORIDE 0.9% 1,000 ML IV SCH ×4 (00:50→20:50)
[2019-03-16] MEDS: PROPOFOL 100 ML IV SCH ×2 (03:00→20:13)
[2019-03-16 05:01] LABS: Basophils # (auto) 0 uL; Basophils % (auto) 0.1 % (0.0-2.0); Eosinophils # (auto) 0 uL; Eosinophils % (auto) 0.2 % (0.0-7.0); Hematocrit 31.3 % (41.0-53.0); Hemoglobin 10.4 g/dL (13.5-17.5); Lymphocytes # (auto) 0.6 uL; Lymphocytes % (auto) 5.2 % (10.0-50.0); Mean Corpuscular Hemoglobin 29.3 pg (28.0-32.0); Mean Corpuscular Hgb Conc. 33.3 g/dL (32.0-36.0); Mean Corpuscular Volume 88.1 fL (80.0-100.0); Monocytes # (auto) 0.6 uL; Monocytes % (auto) 5.2 % (0.0-12.0); Neutrophils # (auto) 10.1 uL; Neutrophils % (auto) 89.3 % (37.0-80.0); Nucleated Red Blood Cells % 0.1 %; Platelet Count (auto) 68 10^3/uL (140-450); Red Blood Cells 3.55 10^6/uL (4.5-5.90); Red Cell Distribution Width 16.8 % (11.8-14.3); White Blood Cell 11.3 10^3/uL (4.4-10.8)
[2019-03-16 05:08] LABS: Albumin 1.5 g/dL (3.4-5.0); Calcium 9.1 mg/dL (8.5-10.1); Potassium 3.5 mmol/L (3.5-5.1)
[2019-03-16 05:11] LABS: BUN/Creatinine Ratio 21.8; Bilirubin, Total 0.3 mg/dL (0.2-1.0); Phosphorus 1.9 mg/dL (2.5-4.90); Total Protein 5.2 g/dL (6.4-8.2)
[2019-03-16 05:25] LABS: INR 1.13 (0.9-1.15); Partial Thromboplastin Time 33.6 sec (23.64-32.05)
[2019-03-16] MEDS ORDERED: ALBUTEROL MEDNEB 2.5 mg/3ml NEB ONE (05:50)
[2019-03-16] MEDS: InsuLIN REG 1unit/0.01ml Soln (100units/ml) SC SCH ×4 (06:20→22:02)
[2019-03-16] MEDS: ACCU-CHEK COMFORT CURVE STRIP VI SCH ×4 (06:20→22:02)
--- NOTE | 2019-03-16 08:37 | NUR ---
Assessment Pt is a 73 yr old intubated male. Assessment conducted through pt's son, Alireza and his Niko at [phone]. Prior to admit, pt lived with his stepson and was ambulatory and independent with ADL's. Pt's family stated that the pt does not share his health status with them and seemed in decent health 2 days prior but later found out that he had been lying in bed and not in good condition for some time. Pt's nurse relayed to that the pt was brought in with some feces on him. addressed that with the pt's family which stated that the pt's wears depends at home but that he is able to change himself and that he must not have been able to do so, very well, upon admit. Pt receives income and chcf and family was unsure about an advanced directive. Pt could benefit from a referral from for a home safety eval. Further needs will be assessed closer to d/c. Addendum: 03/16/19 at 0848 by AGAPITO BANUELOS Amended: Links added.
[2019-03-16] MEDS ORDERED: cefTRIAXone 1GM/50ML D5W 50 ML IV SCH (09:00)
[2019-03-16] MEDS: DexMEDEtomidine 400 MCG in D5W 5% 96 ML IV SCH (09:28)
[2019-03-16] MEDS: FAMOTIDINE (10MG/ML) 2ML VL IV SCH (09:35)
[2019-03-16] MEDS: AMIODARONE HCL 200 MG TAB PO SCH (09:36)
[2019-03-16] MEDS: BELLADONNA ALKAL/OPIUM (16.2/30MG) RECT SUPP PR SCH (09:37)
[2019-03-16] MEDS: NYSTATIN TOPICAL POWDER 15GM TOP SCH ×2 (09:38→21:28)
--- NOTE | 2019-03-16 10:33 | NUR ---
PULMONOLOGY VISITS DR DANIEL UPDATED ON PATIENT'S STATUS. DOCTOR REQUESTED TO SPEAK WITH HOSPITALIST - ALPINE PATROLLER PAGED HOSPITALIST, AWAITING RETURN CALL. ORDERS RECEIVED.
[2019-03-16] MEDS ORDERED: cefTRIAXone 1GM/50ML D5W 50 ML IV ONE (10:45)
[2019-03-16] MEDS ORDERED: POTASSIUM EFFERVESENT TAB 25 MEQ NG ONE (12:00)
[2019-03-16] MEDS: FLUCONAZOLE 200MG/100ML 100 ML IV SCH (14:22)
--- NOTE | 2019-03-16 15:12 | NUR ---
Family updated on pt status Family of TONI LESTER updated on patient's status and condition after password verification. All questions and concerns addressed. Patient's daughter in law Lynn verbalized understanding.
--- NOTE | 2019-03-16 18:17 | NUR ---
NEUROLOGY AT BEDSIDE DR ZAMORA UPDATED ON PATIENT'S STATUS, REASON FOR CONSULT. ORDERS RECEIVED AND ENTERED BY DR ZAMORA.
--- NOTE | 2019-03-16 18:26 | NUR ---
Respiratory note: RECEIVED PT ON VENT V12, VENT CONNECTED TO RED OUTLET AND O2 SOURCE. ALARMS ARE SET AND AUDIBLE TO NURSE STATION,AMBU BAG AND MASK AT BEDSIDE. BS ARE FINE COURSE SXBrennan MATA, MED NEB TX GIVEN INLINE WITHOUT ADVERSE REACTION NOTED. CURRENT TEMP IS 98.2F. RT NAME AND PAGER ASSIGNMENT WRITTEN ON PTS ROOM BOARD. WILL CONTINUE TO MONITOR Q2H AND PRN.
--- NOTE | 2019-03-16 19:15 | NUR ---
OPEN NOTE RECEIVED REPORT ON FULL CODE ICU PATIENT. INTUBATED ON NO SEDATED. PATIENT NOT TOLERATING VENT WELL, PATIENT HAD PERIODS OF HIGH PRESSURE ON VENT AND INCREASED RESP RATE 23 AND GREATER. BILATERAL LUNG SOUND AND EVEN CHEST RISE AND FALL. NSR 80's BP 130/70 ON NO PRESSURE. PULSES PALPABLE THROUGHOUT. 20FR ARCHER PATENT DRAINING PURULENT MUCUS THREADS. RIGHT NGT AUSCULTATED AND ASPIRATED FOR CORRECT PLACEMENT RUNNING TUBE FEEDING AT 40ML/HR WITH 2 ML RESIDUAL. LEFT SUBCLAVIAN TLC CDI. MULTIPLE AREAS OF CONCERN ON SKIN, SEE INTERVENTIONS FOR MORE INFORMATION. BED SET TO LOWEST POSITION. ALL FALL AND SAFETY PRECAUTIONS IN PLACE.
--- NOTE | 2019-03-16 20:11 | NUR ---
Respiratory note: At bedside for routine vent check. No changes made at this time. Will continue to monitor q2. Rn Corby at bedside communicated pt has been started on propofol.
--- NOTE | 2019-03-16 20:13 | NUR ---
PATIENT INCREASED AGITATION PATIENT BUCKING VENTILATOR, STARTED ON LOW DOSE OF PROPOFOL FOR COMFORT.
[2019-03-16] MEDS: INSULIN LANTUS (GLARGINE) 1 /0.01ml (100units/ml) SC SCH (22:02)
--- NOTE | 2019-03-16 22:13 | NUR ---
Respiratory note: At bedside for routine vent check. pts current temp is 98.4, No changes made at this time. Will continue to monitor q2.
--- NOTE | 2019-03-16 23:52 | NUR ---
paged positive blood cultures for patient seymour per pharmacy ordered
[2019-03-17] VITALS (90 sets, daily range): BP systolic 93–154; BP diastolic 45–90
[2019-03-17] MEDS ORDERED: VANCOMYCIN PER PHARMACY 0 MG IV SCH
[2019-03-17] MEDS: IPRATROPIUM BROM 0.5 MG/2.5ML INH SOL NEB SCH ×4 (00:13→18:31)
[2019-03-17] MEDS: ALBUTEROL SULF 2.5 MG/0.5ML(0.5%) NEB SOLN NEB SCH ×4 (00:13→18:31)
--- NOTE | 2019-03-17 00:13 | NUR ---
Respiratory note: At bedside for routine vent check. pts current temp is 98.4, med neb tx given inline without adverse reaction noted. No vent changes made at this time. Will continue to monitor q2.
--- NOTE | 2019-03-17 02:17 | NUR ---
complete bed change patient skin reassessed and no new break down noted
--- NOTE | 2019-03-17 02:43 | NUR ---
Respiratory note: At bedside for routine vent check. pts current temp is 98.1, bs are fine course lavage sxd for large amounts of thick burks. No vent changes made at this time. Will continue to monitor q2h.
[2019-03-17] MEDS: DexMEDEtomidine 400 MCG in D5W 5% 96 ML IV SCH ×2 (03:07→19:28)
[2019-03-17] MEDS: SODIUM CHLORIDE 0.9% 1,000 ML IV SCH ×4 (03:30→23:59)
[2019-03-17] MEDS ORDERED: VANCOMYCIN 1GM/250ML 250 ML IV ONE (03:30)
--- NOTE | 2019-03-17 03:57 | NUR ---
Respiratory note: END OF SHIFT VENT CHECK. NO CHANGES MADE AT THIS TIME. WILL HAVE DAY SHIFT RT CONTINUE POC.
[2019-03-17 04:27] LABS: Basophils # (auto) 0 uL; Basophils % (auto) 0.2 % (0.0-2.0); Eosinophils # (auto) 0 uL; Eosinophils % (auto) 0.2 % (0.0-7.0); Lymphocytes # (auto) 0.6 uL; Lymphocytes % (auto) 6.4 % (10.0-50.0); Mean Corpuscular Volume 90.1 fL (80.0-100.0); Monocytes # (auto) 0.7 uL; Platelet Count (auto) 57 10^3/uL (140-450)
[2019-03-17 04:29] LABS: Hemoglobin 10.9 g/dL (13.5-17.5); Mean Corpuscular Hemoglobin 29.8 pg (28.0-32.0); Mean Corpuscular Hgb Conc. 33.1 g/dL (32.0-36.0); Monocytes % (auto) 6.9 % (0.0-12.0); Neutrophils # (auto) 8.4 uL; Neutrophils % (auto) 86.3 % (37.0-80.0); Red Blood Cells 3.66 10^6/uL (4.5-5.90); Red Cell Distribution Width 17.2 % (11.8-14.3); White Blood Cell 9.7 10^3/uL (4.4-10.8)
[2019-03-17 04:42] LABS: INR 1.07 (0.9-1.15); Partial Thromboplastin Time 26.9 sec (23.64-32.05)
[2019-03-17 05:02] LABS: Albumin 1.3 g/dL (3.4-5.0); Calcium 7.6 mg/dL (8.5-10.1); Magnesium 1.8 mg/dL (1.6-2.6); Potassium 3.5 mmol/L (3.5-5.1)
[2019-03-17 05:11] LABS: Bilirubin, Total 0.6 mg/dL (0.2-1.0); Total Protein 4.6 g/dL (6.4-8.2)
[2019-03-17 05:12] LABS: BUN/Creatinine Ratio 20.2
--- NOTE | 2019-03-17 06:02 | NUR ---
Respiratory note: RECEIVED PATIENT ON V12 V200 VENT ORALLY INTUBATED WITH AN 8.0 ETT SECURED VIA LUIS FERNANDO AT THE 25CM MARKING AT THE LIP, AND MECHANICALLY VENTILATED WITH THE CHARTED SETTINGS. SPO2 95%, LUNG SOUNDS CLEAR/DIM T/O, NO SECRETIONS WHEN SUCTIONED. SKIN IS WARM/DRY TO THE TOUCH AND IS INTACT NEAR LUIS FERNANDO SITE. THERE IS A NGT IN THE RIGHT NARE AND IS SECURED TO THE ETT, LEFT SUBCLAVIAN TRIPLE LUMEN CENTRAL LINE IS PLACED AND PATENT. PITTING EDEMA NOTED IN BILATERAL UPPER EXTREMITIES, WELL IN BILATERAL LOWER EXTREMITIES. PATIENT IS UNRESPONSIVE TO BOTH VERBAL/TACTILE STIMULI AND IS SEDATED ON A PROPOFOL DRIP. HE IS RESTING COMFORTABLY AND TOLERATING VENT WELL, NO CHANGES MADE. VENT PLUGGED INTO RED OUTLET AND ALL ALARMS ARE SET AND AUDIBLE. WILL CONTINUE TO ASSESS PATIENT WELL VENTILATOR FUNCTION. MED-[employer] RUN INLINE.
[2019-03-17] MEDS: ACCU-CHEK COMFORT CURVE STRIP VI SCH ×4 (06:45→22:01)
[2019-03-17] MEDS: InsuLIN REG 1unit/0.01ml Soln (100units/ml) SC SCH ×4 (06:45→22:01)
--- NOTE | 2019-03-17 08:50 | NUR ---
SPOKE WITH PHARMACISTS [facility] VERIFIED BLOOD CULTURES WITH THIS NURSE AND REPORTED POSSIBLE CONTAMINATION AND NOT TO ADMINISTER VANCOMYCIN, "CURRENT ANTIBIOTIC TREATMENT APPROPRIATE" - VANCOMYCIN WILL BE HELD, HOSPITALIST WILL BE NOTIFIED.
[2019-03-17] MEDS: cefTRIAXone 1GM/50ML D5W 50 ML IV SCH (09:17)
[2019-03-17] MEDS: BELLADONNA ALKAL/OPIUM (16.2/30MG) RECT SUPP PR SCH (09:22)
[2019-03-17] MEDS: AMIODARONE HCL 200 MG TAB PO SCH (09:22)
[2019-03-17] MEDS: FAMOTIDINE (10MG/ML) 2ML VL IV SCH (09:22)
[2019-03-17] MEDS: NYSTATIN TOPICAL POWDER 15GM TOP SCH ×2 (09:22→22:01)
--- NOTE | 2019-03-17 09:32 | NUR ---
Respiratory note: AM CXR ASSESSED AND IT SHOWS ETT IN SATISFACTORY POSITION SITTING APPROX 4.5CM ABOVE THE BLANQUITA. NO INDICATION TO ADJUST TUBE AT THIS TIME.
--- NOTE | 2019-03-17 09:46 | NUR ---
PACKING MACHINE OPERATOR AT BEDSIDE
--- NOTE | 2019-03-17 09:52 | NUR ---
HOSPITALIST AT BEDSIDE DR STILES UPDATED ON PATIENT'S STATUS, DRIPS, LABS, NEURO STATUS AND DR ZAMORA RECOMMENDATIONS. NO VERBAL ORDERS AT THIS TIME. Addendum: 03/17/19 at 1130 by Lauren Velasquez RN DR STILES NOTIFIED OF [facility] PHARMACISTS RECOMMENDATIONS REGARDING BLOOD CULTURES AND HOLDING VANCOMYCIN, DR STILES VERBALIZED UNDERSTANDING AND AGREED, VANCOMYCIN WILL BE HELD.
[2019-03-17] MEDS ORDERED: VANCOMYCIN 1,250 MG in D5W 5% 250 ML IV SCH (10:00)
--- NOTE | 2019-03-17 10:20 | NUR ---
EEG COMPLETED AT BEDSIDE.
[2019-03-17] MEDS: MIDAZOLAM DRIP 50 mg/50mL 50 ML IV SCH (12:09)
--- NOTE | 2019-03-17 12:35 | NUR ---
PULMONOLOGY AT BEDSIDE DR DANIEL UPDATED ON PATIENT'S STATUS. NO VERBAL ORDERS RECEIVED AT THIS TIME.
--- NOTE | 2019-03-17 14:44 | NUR ---
Nutrition Follow up Notes Pt wt is 113.4 kg today Pt is back on Glucerna 1.2 @ 60 ml/hr goal rate after short duration of NPO status per RN. Per RN, pt is tolerating it well, no distress or problems. Will continue to monitor and reassess prn Est energy needs: 8841-0294 kcals (14-18 kcals/kgBW) Est protein needs: 91-113 gms/day (0.8-1.0 gm/kgBW) LABS: Gluc 224 H, Alb 1.3 L, Na 132 L, BUN 35 H, Cr 1.73 H BS: 11 high risk, sacrum and buttocks reddened BM: Last BM: None PES: 1) Energy intake in excess of energy needs r/t pt adiposity aeb 156% IBW and BMI of 36.9 kg/m2 2) Altered nutrition related lab values r/t current and chronic medical condition aeb hyperglycemia, hyponatremia, hypokalemia, elev RFTs, hypoalbuminemia 3) Inadequate oral intake r/t current NPO status r/t current NPO status Recommendations: 1) Continue to closely monitor NPO status 2) Gradually advance diet to Glucerna 1.2 @ 60ml/hr goal rate when medically feasible and upon MD approval 3) If albumin remains low and with improved RFTs, consider Prostat 1 pkt BID 4) Refer pt ot RD/CDE for nutrition/diabetes/wt management education upon discharge 5) Continue with current plan of care
--- NOTE | 2019-03-17 15:00 | NUR ---
COMFORT/FEEDING SKIN CARE PROVIDED RECOMMENDED BY WOUND CARE - COMPLETE BEDDING CHANGED, HAIR WASHED AND SEMI-COMBED OUT OF MATTED HAIR PATIENT HAD HAIR WRAPPED WITH RUBBER BAND. NEW TUBE FEEDING BOTTLE STARTED, ZERO RESIDUAL NOTED - PATIENT TOLERATING FEEDING WELL, BOWEL MOVEMENT UNKNOWN - ABDOMEN LARGE AND SOFT TO TOUCH. FALL, ASPIRATION AND SAFETY PRECAUTIONS IN PLACE.
[2019-03-17] MEDS: NOREPINEPHRINE 8 MG/250ML KIT 250 ML IV SCH (15:15)
[2019-03-17] MEDS: FLUCONAZOLE 200MG/100ML 100 ML IV SCH (17:33)
--- NOTE | 2019-03-17 17:40 | NUR ---
NEUROLOGY AT BEDSIDE DR ZAMORA UPDATED ON PATIENT'S NEURO STATUS. NO ORDERS RECEIVED AT THIS TIME.
--- NOTE | 2019-03-17 19:15 | NUR ---
OPEN NOTE RECEIVED REPORT ON FULL CODE ICU PATIENT. INTUBATED ON NO SEDATED. PATIENT TOLERATING VENT. BILATERAL LUNG SOUND AND EVEN CHEST RISE AND FALL. NSR 80's BP 135/70 ON NO PRESSURE. PULSES PALPABLE THROUGHOUT. 20FR ARCHER PATENT DRAINING PURULENT MUCUS THREADS. RIGHT NGT AUSCULTATED AND ASPIRATED FOR CORRECT PLACEMENT RUNNING TUBE FEEDING AT 60ML/HR WITH 0 ML RESIDUAL. LEFT SUBCLAVIAN TLC CDI. MULTIPLE AREAS OF CONCERN ON SKIN, SEE INTERVENTIONS FOR MORE INFORMATION. BED SET TO LOWEST POSITION. ALL FALL AND SAFETY PRECAUTIONS IN PLACE.
[2019-03-17] MEDS: INSULIN LANTUS (GLARGINE) 1 /0.01ml (100units/ml) SC SCH (22:01)
[2019-03-18] VITALS (95 sets, daily range): BP systolic 127–169; BP diastolic 70–103
[2019-03-18] MEDS: IPRATROPIUM BROM 0.5 MG/2.5ML INH SOL NEB SCH ×4 (00:06→18:21)
[2019-03-18] MEDS: ALBUTEROL SULF 2.5 MG/0.5ML(0.5%) NEB SOLN NEB SCH ×4 (00:06→18:21)
[2019-03-18 04:27] LABS: Basophils # (auto) 0 uL; Basophils % (auto) 0.1 % (0.0-2.0); Eosinophils # (auto) 0 uL; Hemoglobin 11.5 g/dL (13.5-17.5); Lymphocytes % (auto) 5.5 % (10.0-50.0)
[2019-03-18 04:29] LABS: Eosinophils % (auto) 0.4 % (0.0-7.0); Hematocrit 35.2 % (41.0-53.0); Lymphocytes # (auto) 0.5 uL; Mean Corpuscular Hemoglobin 29.1 pg (28.0-32.0); Mean Corpuscular Hgb Conc. 32.6 g/dL (32.0-36.0); Mean Corpuscular Volume 89.2 fL (80.0-100.0); Monocytes # (auto) 0.6 uL; Monocytes % (auto) 5.9 % (0.0-12.0); Neutrophils # (auto) 8.8 uL; Neutrophils % (auto) 88.1 % (37.0-80.0); Platelet Count (auto) 62 10^3/uL (140-450); Red Blood Cells 3.95 10^6/uL (4.5-5.90); Red Cell Distribution Width 17.6 % (11.8-14.3); White Blood Cell 9.9 10^3/uL (4.4-10.8)
[2019-03-18 04:51] LABS: Calcium 9.3 mg/dL (8.5-10.1); Potassium 3.8 mmol/L (3.5-5.1)
[2019-03-18 04:57] LABS: Albumin 1.7 g/dL (3.4-5.0); BUN/Creatinine Ratio 27.6; Bilirubin, Total 0.3 mg/dL (0.2-1.0); Total Protein 5.7 g/dL (6.4-8.2)
[2019-03-18] MEDS: SODIUM CHLORIDE 0.9% 1,000 ML IV SCH (06:10)
[2019-03-18] MEDS: InsuLIN REG 1unit/0.01ml Soln (100units/ml) SC SCH ×4 (06:41→21:44)
[2019-03-18] MEDS: ACCU-CHEK COMFORT CURVE STRIP VI SCH ×4 (06:41→21:45)
--- NOTE | 2019-03-18 07:00 | NUR ---
REPOT RECEIVED FROM ROOM SERVICE WAITER NURSE. PATIENT RESTING IN BED INTUBATED ON NO SEDATIONS. RESPIRATIONS EVEN AND UNLABORED. NO SIGNS OF ACUTE DISTRESS NOTED. BED IN LOW POSITION. WILL CONTINUE TO MONITOR.
[2019-03-18] MEDS: cefTRIAXone 1GM/50ML D5W 50 ML IV SCH (08:31)
[2019-03-18] MEDS: BELLADONNA ALKAL/OPIUM (16.2/30MG) RECT SUPP PR SCH (09:49)
[2019-03-18] MEDS: AMIODARONE HCL 200 MG TAB PO SCH (09:49)
[2019-03-18] MEDS: NYSTATIN TOPICAL POWDER 15GM TOP SCH ×2 (09:49→21:44)
[2019-03-18] MEDS: FAMOTIDINE (10MG/ML) 2ML VL IV SCH (09:49)
[2019-03-18] MEDS: MIDAZOLAM DRIP 50 mg/50mL 50 ML IV SCH (12:09)
--- NOTE | 2019-03-18 12:25 | NUR ---
WENDY FROM APS AT BEDSIDE TO OBTAIN UPDATE ON PATIENT STATUS. INFORMATION LEFT IN PATIENTS CHART.
--- NOTE | 2019-03-18 12:30 | NUR ---
CENTRAL LINE DRESSING CHANGED USING STERILE TECHNIQUE. NO NOTED REDNESS OR DRAINAGE AT THIS TIME.
--- NOTE | 2019-03-18 13:30 | NUR ---
DR AREVALO AT BEDSIDE TO ASSESS PATIENT AND DISCUSS PLAN OF CARE. ALL ORDERS ORDERED IN CHART.
[2019-03-18] MEDS: PROPOFOL 100 ML IV SCH (13:54)
[2019-03-18] MEDS: SOD CHL 0.45% WITH 20MEQ KCL 1,000 ML IV SCH ×2 (14:10→21:44)
[2019-03-18] MEDS: FLUCONAZOLE 200MG/100ML 100 ML IV SCH (14:11)
[2019-03-18] MEDS: DexMEDEtomidine 400 MCG in D5W 5% 96 ML IV SCH (14:25)
[2019-03-18] MEDS: NOREPINEPHRINE 8 MG/250ML KIT 250 ML IV SCH (15:15)
--- NOTE | 2019-03-18 15:28 | NUR ---
PAGED DR STILES FOR PATIENTS ELEVATED BLOOD PRESSURE. AWAITING CALL BACK.
[2019-03-18] MEDS ORDERED: hydrALAZINE HCL 20 MG/ML VL IV PRN (16:00)
--- NOTE | 2019-03-18 16:00 | NUR ---
DR ZAMORA AT BEDSIDE TO ASSESS PATIENT AND DISCUSS PLAN OF CARE. NO NEW ORDERS AT THIS TIME.
[2019-03-18] MEDS ORDERED: hydrALAZINE HCL 20 MG/ML VL ONE (16:09)
--- NOTE | 2019-03-18 16:25 | NUR ---
DR DANIEL AT BEDSIDE TO ASSESS PATIENT AND DISCUSS PLAN OF CARE.
--- NOTE | 2019-03-18 20:00 | NUR ---
EDUCATION PT IS COMATOSE ON MECHANICAL VENTILATOR AND DOES NOT BENEFIT FROM TEACHING AT THIS TIME. NO SECOND LEARNER PRESENT AT BEDSIDE, WILL CONTINUE TO MONITOR FOR TEACHING OPPORTUNITIES Addendum: 03/18/19 at 2116 by Ijeoma Cook RN Amended: Links added.
[2019-03-18] MEDS: INSULIN LANTUS (GLARGINE) 1 /0.01ml (100units/ml) SC SCH (21:44)
[2019-03-19] VITALS (63 sets, daily range): BP systolic 82–145; BP diastolic 49–92
[2019-03-19] MEDS: ALBUTEROL SULF 2.5 MG/0.5ML(0.5%) NEB SOLN NEB SCH ×4 (00:12→18:03)
[2019-03-19] MEDS: IPRATROPIUM BROM 0.5 MG/2.5ML INH SOL NEB SCH ×4 (00:12→18:03)
[2019-03-19 04:22] LABS: Basophils # (auto) 0 uL; Basophils % (auto) 0.2 % (0.0-2.0); Eosinophils # (auto) 0 uL; Eosinophils % (auto) 0.3 % (0.0-7.0); Hematocrit 38.5 % (41.0-53.0); Hemoglobin 12.5 g/dL (13.5-17.5); Lymphocytes # (auto) 0.6 uL; Lymphocytes % (auto) 6.8 % (10.0-50.0); Mean Corpuscular Hemoglobin 29.4 pg (28.0-32.0); Mean Corpuscular Hgb Conc. 32.5 g/dL (32.0-36.0); Mean Corpuscular Volume 90.7 fL (80.0-100.0); Monocytes # (auto) 0.4 uL; Monocytes % (auto) 4.8 % (0.0-12.0); Neutrophils # (auto) 7.6 uL; Neutrophils % (auto) 87.9 % (37.0-80.0); Platelet Count (auto) 69 10^3/uL (140-450); Red Blood Cells 4.25 10^6/uL (4.5-5.90); Red Cell Distribution Width 17.9 % (11.8-14.3); White Blood Cell 8.7 10^3/uL (4.4-10.8)
[2019-03-19 04:34] LABS: Albumin 1.7 g/dL (3.4-5.0); Calcium 9.5 mg/dL (8.5-10.1)
[2019-03-19 04:37] LABS: BUN/Creatinine Ratio 29.1; Magnesium 2.1 mg/dL (1.6-2.6)
[2019-03-19 04:39] LABS: Bilirubin, Total 0.3 mg/dL (0.2-1.0); Total Protein 6.1 g/dL (6.4-8.2)
[2019-03-19] MEDS ORDERED: AMIODARONE HCL 150 MG in D5W 5% 100 ML IV ONE (06:00)
[2019-03-19] MEDS ORDERED: AMIODARONE HCL 900 MG in DEXTROSE 500 ML IV SCH (06:08)
[2019-03-19] MEDS: SOD CHL 0.45% WITH 20MEQ KCL 1,000 ML IV SCH ×4 (06:24→22:50)
[2019-03-19] MEDS ORDERED: AMIODARONE HCL (50 MG/ ML) 3 ML VIAL IV ONE (06:29)
[2019-03-19] MEDS ORDERED: AMIODARONE HCL 900 MG IV ONE (06:29)
[2019-03-19] MEDS: ACCU-CHEK COMFORT CURVE STRIP VI SCH ×4 (06:37→22:27)
[2019-03-19] MEDS: InsuLIN REG 1unit/0.01ml Soln (100units/ml) SC SCH ×4 (06:38→22:00)
--- NOTE | 2019-03-19 07:15 | NUR ---
REPOT RECEIVED FROM LITHODUPLICATOR OPERATOR NURSE. PATIENT RESTING IN BED INTUBATED ON NO SEDATIONS. RESPIRATIONS EVEN AND UNLABORED. NO SIGNS OF ACUTE DISTRESS NOTED. BED IN LOW POSITION. WILL CONTINUE TO MONITOR.
[2019-03-19 07:19] LABS: INR 1.16 (0.9-1.15); Partial Thromboplastin Time 27.6 sec (23.64-32.05)
[2019-03-19] MEDS: DexMEDEtomidine 400 MCG in D5W 5% 96 ML IV SCH (08:04)
[2019-03-19] MEDS: cefTRIAXone 1GM/50ML D5W 50 ML IV SCH (08:24)
[2019-03-19] MEDS: METOPROLOL TARTRATE 1MG/1ML-5ML VIAL IV PRN (08:52)
--- NOTE | 2019-03-19 08:52 | NUR ---
HEART RATE PATIENT CURRENTLY ON AMIODARONE DRIP PER PROTOCOL AND HEART RATE CONTINUES TO BE BETWEEN 140-160. ADMINISTERED METOPROLOL PER MD ORDER, PATIENTS HEART RATE CURRENT 114. WILL CONTINUE TO MONITOR.
[2019-03-19] MEDS: AMIODARONE HCL 200 MG TAB PO SCH (10:00)
[2019-03-19] MEDS: BELLADONNA ALKAL/OPIUM (16.2/30MG) RECT SUPP PR SCH (10:00)
[2019-03-19] MEDS: FAMOTIDINE (10MG/ML) 2ML VL IV SCH (10:26)
[2019-03-19] MEDS: NYSTATIN TOPICAL POWDER 15GM TOP SCH ×2 (10:27→22:27)
[2019-03-19] MEDS: MIDAZOLAM DRIP 50 mg/50mL 50 ML IV SCH (12:09)
[2019-03-19] MEDS: PROPOFOL 100 ML IV SCH (13:45)
[2019-03-19] MEDS: AMIODARONE HCL 900 MG in DEXTROSE 500 ML IV SCH (13:45)
[2019-03-19] MEDS: FLUCONAZOLE 200MG/100ML 100 ML IV SCH (13:45)
[2019-03-19] MEDS: NOREPINEPHRINE 8 MG/250ML KIT 250 ML IV SCH (15:15)
--- NOTE | 2019-03-19 15:42 | NUR ---
DR STILES AT BEDSIDE TO ASSESS PATIENT AND DISCUSS PLAN OF CARE. MD INFORMED OF PATIENT NOT HAVING BOWEL MOVEMENT SINCE ADMISSION. ALL ORDERS NOTED IN CHART.
[2019-03-19] MEDS ORDERED: LACTULOSE 20Gm/30ML SOLN PO PRN (15:45)
--- NOTE | 2019-03-19 16:00 | NUR ---
DR DANIEL AT BEDSIDE TO ASSESS PATIENT AND DISCUSS PLAN OF CARE. NO NEW ORDERS.
--- NOTE | 2019-03-19 16:30 | NUR ---
DR LAU AT BEDSIDE TO ASSESS PATIENT AND DISCUSS PLAN OF CARE. PER MD 500ML FREE WATER Q2HR X3 DOSES. THEN 400ML 6QHR SCHEDULED. ALL ORDERS NOTED IN CHART.
[2019-03-19] MEDS: FREE WATER GT SCH ×3 (17:55→22:24)
--- NOTE | 2019-03-19 18:00 | NUR ---
DR AVELAR AT BEDSIDE TO ASSESS PATIENT AND DISCUSS PLAN OF CARE. PER MD ADMINISTER 100MG LASIX IVP X1 DOSE. PER MD WILL ORDER DAILY LASIX AND POTASSIUM. MD INFORMED IF HE WANTED PATIENT ON BLOOD THINNERS. PER MD NO BLOOD THINNERS UNTIL PATIENTS PLATELETS INCREASE TO 100 OR GREATER.
[2019-03-19] MEDS ORDERED: FUROSEMIDE 100 MG/10ML VIAL IV SCH (18:15)
--- NOTE | 2019-03-19 19:30 | NUR ---
open received report from slick braden and assumed care of male pt orally intubated not on sedation. pt is connected to icu monitors and vs are stable. pt appears to be resting. pt does not follow commands, pupils are 4 and brisk/reactive. lungs are equal and unlabored. pt has a L subclavian lumen, flushed with ns and no resistance noted, appear asymptomatic. pt receiving amio and 1/2ns w/20k. pt has r ngt,rectal probe and Goodwin hanging below bladder patent draining large amounts of yellow cloudy urine with sediment to gravity. pt has a r fa skin tear cover with opti foam.groin and abdominal folds are very red and macerated. pts L hip has 2 wounds both covered with optifoam.L buttocks/sacrum macerated. pts scrotum is reddened and swollen. scds placed bilateral to lower extremities. bed is in lowest position.wheels locked, side rails up x2. hob30*. pillows in place under kody prominences to offload pressure for comfort and safety. pt in full view of rn station. will continue to care for and monitor.
--- NOTE | 2019-03-19 19:40 | NUR ---
elevated temp cooling measures are in place
--- NOTE | 2019-03-19 20:30 | NUR ---
dressings changed wound dressings changed. l hip and buttock wounds cleansed and new opti foam applied. pt tolerated care. vs stable
--- NOTE | 2019-03-19 20:35 | NUR ---
Linette called regarding speciality mattress stated he will try to bring the bed between 1-3 am. otherwise will bring the bed by 9am. Linette confirmed that he will call between 1-3 am and give an update to what is going to happen.
[2019-03-19] MEDS: INSULIN LANTUS (GLARGINE) 1 /0.01ml (100units/ml) SC SCH (22:00)
[2019-03-19] MEDS: METOPROLOL TARTRATE 50 MG TAB PO SCH (22:25)
[2019-03-19] MEDS: POTASSIUM EFFERVESENT TAB 25 MEQ PO SCH (22:25)
[2019-03-20] VITALS (102 sets, daily range): BP systolic 86–138; BP diastolic 56–101
[2019-03-20] MEDS: ALBUTEROL SULF 2.5 MG/0.5ML(0.5%) NEB SOLN NEB SCH ×5 (00:08→23:58)
[2019-03-20] MEDS: IPRATROPIUM BROM 0.5 MG/2.5ML INH SOL NEB SCH ×5 (00:08→23:58)
[2019-03-20] MEDS: FREE WATER GT SCH ×6 (00:14→22:17)
[2019-03-20] MEDS: DexMEDEtomidine 400 MCG in D5W 5% 96 ML IV SCH ×2 (01:43→19:22)
--- NOTE | 2019-03-20 01:45 | NUR ---
cooling measures working, will continue.
--- NOTE | 2019-03-20 02:21 | NUR ---
[facility] REGARDING SPECIALTY BED BED WILL BE HERE BETWEEN 8AM AND 10AM 03/20/19 [id number] HADLEY
--- NOTE | 2019-03-20 03:10 | NUR ---
no ss of distress noted pt tolerates care and remains intubated laying in bed, vs stable, no ss of pain or distress noted.
--- NOTE | 2019-03-20 03:55 | NUR ---
hygiene partial bed bath provided. leonardo change done. pt tolerated care, pt is still intubated and vs remain stable. will continue to care for .
[2019-03-20 03:57] LABS: Basophils # (auto) 0 uL; Basophils % (auto) 0.1 % (0.0-2.0); Eosinophils # (auto) 0.1 uL; Eosinophils % (auto) 0.8 % (0.0-7.0); Hematocrit 36.4 % (41.0-53.0); Hemoglobin 11.6 g/dL (13.5-17.5); Lymphocytes # (auto) 0.9 uL; Lymphocytes % (auto) 8.1 % (10.0-50.0); Mean Corpuscular Hemoglobin 28.5 pg (28.0-32.0); Mean Corpuscular Hgb Conc. 31.8 g/dL (32.0-36.0); Mean Corpuscular Volume 89.8 fL (80.0-100.0); Monocytes # (auto) 0.4 uL; Monocytes % (auto) 3.7 % (0.0-12.0); Neutrophils # (auto) 9.6 uL; Neutrophils % (auto) 87.3 % (37.0-80.0); Nucleated Red Blood Cells % 0.1 %; Platelet Count (auto) 85 10^3/uL (140-450); Red Blood Cells 4.06 10^6/uL (4.5-5.90); Red Cell Distribution Width 17.6 % (11.8-14.3)
[2019-03-20 04:14] LABS: Calcium 9.2 mg/dL (8.5-10.1); INR 1.18 (0.9-1.15); Magnesium 1.9 mg/dL (1.6-2.6); Partial Thromboplastin Time 29.2 sec (23.64-32.05); Potassium 3.6 mmol/L (3.5-5.1)
[2019-03-20 04:15] LABS: BUN/Creatinine Ratio 28.2
[2019-03-20] MEDS: AMIODARONE HCL 900 MG in DEXTROSE 500 ML IV SCH (04:32)
[2019-03-20] MEDS: SOD CHL 0.45% WITH 20MEQ KCL 1,000 ML IV SCH ×2 (04:33→18:35)
--- NOTE | 2019-03-20 05:25 | NUR ---
suction tubing and canisters changed
[2019-03-20] MEDS: ACCU-CHEK COMFORT CURVE STRIP VI SCH ×4 (07:04→22:15)
[2019-03-20] MEDS: InsuLIN REG 1unit/0.01ml Soln (100units/ml) SC SCH ×4 (07:08→22:00)
--- NOTE | 2019-03-20 07:45 | NUR ---
OPENING NOTE Initial assessment complete Report received from Meena HARRIS, care assumed. Pupils are equal and reactive with cough/reflex intact. Patient opens eyes spontaneously and to name. Patient does move upper extremities but with weakness. Patient following commands intermittently. Afebrile at this time. Pulses palpable radial and pedal bilaterally. Edema noted on upper and lower extremities. SCD's in place. Lungs clear but coarse anteriorly. Oxygen saturation 96%, no distress noted. Thick creamy secretions suctioned from ETT. Bowel sounds present. Goodwin catheter present, patent, and secured below bladder. See skin/wound assessment. Extremities off loaded on pillows. HOB greater than 30 degrees, alarms in place. Bed locked in lowest position, will continue to monitor.
[2019-03-20] MEDS: cefTRIAXone 1GM/50ML D5W 50 ML IV SCH (08:45)
--- NOTE | 2019-03-20 09:00 | NUR ---
ELIMINATION Patient had moderate liquid bowel movement. Patient given complete bed bath and full linen change. Patient tolerated activity fair. No distress noted. Patient unable to assist with turning. Z-guard applied to sacrum, skin flaking. Wound dressings are CDI. Patient repositioned on side, HOB elevated, and all extremities off loaded on pillows. Bed locked in lowest position. Will continue to monitor.
--- NOTE | 2019-03-20 09:20 | NUR ---
MD VISIT: NEPHROLOGY at bedside. MD reviewing medical record. Orders obtained.
[2019-03-20] MEDS: BELLADONNA ALKAL/OPIUM (16.2/30MG) RECT SUPP PR SCH (10:00)
[2019-03-20] MEDS: AMIODARONE HCL 200 MG TAB PO SCH ×2 (10:00→22:16)
[2019-03-20 10:36] LABS: Albumin 1.6 g/dL (3.4-5.0); Calcium 9.1 mg/dL (8.5-10.1); Potassium 3.4 mmol/L (3.5-5.1)
[2019-03-20 10:40] LABS: BUN/Creatinine Ratio 26.3; Bilirubin, Total 0.3 mg/dL (0.2-1.0); Total Protein 5.8 g/dL (6.4-8.2)
[2019-03-20] MEDS: POTASSIUM EFFERVESENT TAB 25 MEQ PO SCH ×2 (10:40→22:17)
[2019-03-20] MEDS: METOPROLOL TARTRATE 50 MG TAB PO SCH ×2 (10:40→22:16)
[2019-03-20] MEDS: NYSTATIN TOPICAL POWDER 15GM TOP SCH ×2 (10:40→22:24)
[2019-03-20] MEDS: FAMOTIDINE (10MG/ML) 2ML VL IV SCH (10:40)
--- NOTE | 2019-03-20 11:00 | NUR ---
WOUND CARE CONSULT/ELIMINATION Wound care nurse at bedside to assess wounds and obtain photographs. Patient had moderate liquid brown bowel movement. Faiza care and partial linen change perform complete. Patient repositioned on side. Vitals stable. Bed locked in lowest position, alarms in place.
--- NOTE | 2019-03-20 11:05 | NUR ---
WOUND CARE NOTE: Wound care in to see patient for reevaluation of multi skin integrity issue that are present on admission. Patient is resting on air bed in ICU Rm. 107. He's intubated and mechanically ventilated. Patient appears to be in no pain using Kennedy Louis Faces Pain Scale. His Jomar score is 12. Patient's intertriginous rash to lower abdominal fold, groin and scrotal area looks improving, less erythremic in comparison to last wound care visit/photograph however patient is on tube feeding and his moisture associated skin damage to L hip, buttocks and sacrum is worse, display open partial thickness wounds. Patient passed moderate amount of loose stools, assisted KIMBERLY Barney to clean patient and for linen change. Cleansed mentioned skin issue with mild soap and water,patted dry. Applied Nystatin powder to intertriginous rashes to abdominal fold, groin, posterior scrotum. Applied Z Guard cream to L hip, sacral, buttocks. Covered open partial thickness wounds with Opti foam gentle dressing. New photograph of wounds are taken for reference. Repositioned patient for comfort facing his L side,redistributed pressure points with pillows. Patient tolerated well. KIMBERLY Barney at bedside. RECOMMENDATION: BID/PRN cleaning and application of Z Guard cream to L hip,sacral, buttocks per MD order, continuation of all other wound care orders prescribed by MD, continue with skin/wound plan of care, continue monitoring by wound care while patient is hospitalized. Addendum: 03/20/19 at 1305 by Chrissy Ware RN Amended: Links added.
--- NOTE | 2019-03-20 11:10 | NUR ---
DESATURATION Patient oxygen saturation decreased to 82% without distress noted. Patient suctioned, thick creamy secretions noted. Oxygen saturation returned to 93%. Will continue to monitor.
--- NOTE | 2019-03-20 11:51 | NUR ---
MD VISIT: PCP at bedside assessing patient. MD aware of electrolyte levels, neuro status, frequent bowel movement. Orders obtained. RT notified of new sputum culture order.
[2019-03-20] MEDS ORDERED: POTASSIUM CHL 20MEQ/100ML 100 ML IV ONE (12:00)
[2019-03-20] MEDS: MIDAZOLAM DRIP 50 mg/50mL 50 ML IV SCH (12:09)
--- NOTE | 2019-03-20 13:00 | NUR ---
ELIMINATION Patient had moderate liquid bowel movement. Patient given partial bed bath and anu care. Patient tolerated activity fair. No distress noted. Z-guard applied to sacrum, skin flaking. Wound dressings are CDI. Patient repositioned on side, HOB elevated, and all extremities off loaded on pillows. Bed locked in lowest position. Will continue to monitor.
[2019-03-20] MEDS: PROPOFOL 100 ML IV SCH (13:33)
[2019-03-20] MEDS: FLUCONAZOLE 200MG/100ML 100 ML IV SCH (13:35)
--- NOTE | 2019-03-20 13:47 | NUR ---
VISITORS Patient sons at bedside. Updated on status and plan of care.
--- NOTE | 2019-03-20 14:00 | NUR ---
MD VISIT: CARDIOLOGY at bedside. MD reviewing medical record. New orders obtained. Amiodarone drip d/c per MD order.
[2019-03-20] MEDS: NOREPINEPHRINE 8 MG/250ML KIT 250 ML IV SCH (15:15)
--- NOTE | 2019-03-20 15:16 | NUR ---
Respiratory note: PLACED ON PT ON CPAP, PT WENT APNEIC. PLACED PT BACK ON AC. RN AWARE OF CPAP TERMINATION.
--- NOTE | 2019-03-20 17:54 | NUR ---
Respiratory note: RECEIVED PT ON VENT V12, VENT CONNECTED TO RED OUTLET AND O2 SOURCE. ALARMS ARE SET AND AUDIBLE. AMBU BAG AND MASK AT BEDSIDE. BS ARE FINE COURSE T/O, SXD FOR THICK CREAM SECRETIONS. MED NEB TX GIVEN INLINE WITHOUT ADVERSE REACTION NOTED. RT NAME AND PAGER ASSIGNMENT WRITTEN ON PTS ROOM BOARD.
[2019-03-20] MEDS ORDERED: AMIODARONE HCL 900 MG in DEXTROSE 500 ML IV SCH (17:59)
--- NOTE | 2019-03-20 18:00 | NUR ---
ELIMINATION Patient had large liquid bowel movement. Patient given partial bed bath and anu care. Flexi-seal inserted due to patients anu area having increase excoriation and maceration. Patient tolerated activity fair. No distress noted. Z-guard applied to sacrum, skin flaking. Wound dressings are CDI. Patient repositioned on side, HOB elevated, and all extremities off loaded on pillows. Bed locked in lowest position. Will continue to monitor.
[2019-03-20 18:23] LABS: BUN/Creatinine Ratio 28.1; Potassium 3.7 mmol/L (3.5-5.1)
--- NOTE | 2019-03-20 19:30 | NUR ---
OPEN NOTES ASSUMED CARE OF PATIENT. FULL ASSESSMENT DONE PATIENT IS AWAKE, OPEN EYES TO CALL, FOLLOWING SIMPLE COMMANDS. MITTENS ON. SEDATION HELD SINCE 03/17. INTUBATED AND VENTILATED ON AC MODE, FIO2 30%. FOR POSSIBLE CPAP TOMORROW. SUCTIONED MODERATE AMOUNT OF THICK MATA COLORED SECRETIONS FROM ETT. VS STABLE. AFEBRILE. REPOSITIONED. ORAL CARE DONE. RIGHT NARE NGT-CLAMPED, CHECK PLACEMENT. KEPT NPO. PATIENT HAD LOOSE STOOLS TODAY - FLEXI SEAL TUBE PLACED BY DAY SHIFT RN. ARCHER CATHETER IN PLACED WITH YELLOWISH OUTPUT WITH SEDIMENTS. SACRAL WOUND NOTED - Z-GUARD APPLIED. NO NEW SKIN ISSUES NOTED-REFER WOUND CHART WILL CONTINUE MONITORING
--- NOTE | 2019-03-20 19:32 | NUR ---
CLOSING NOTE Report given to Danelle HARRIS, care endorsed.
--- NOTE | 2019-03-20 19:54 | NUR ---
Respiratory note: ROUTINE VENT CHECK DONE AT THIS TIME. NO CHANGES MADE, WILL CONTINUE TO MONITOR.
--- NOTE | 2019-03-20 21:49 | NUR ---
Respiratory note: ROUTINE VENT CHECK DONE AT THIS TIME. NO CHANGES MADE AT THIS TIME, WILL CONTINUE TO MONITOR.
[2019-03-20] MEDS: INSULIN LANTUS (GLARGINE) 1 /0.01ml (100units/ml) SC SCH (22:00)
--- NOTE | 2019-03-20 23:58 | NUR ---
Respiratory note: ROUTINE VENT CHECK DONE AT THIS TIME. BS ARE COURSE T/O, SXD LARGE AMOUNT OF THICK CREAM COLORED SECRETIONS. MED NEB TX GIVEN INLINE WITHOUT ADVERSE REACTION NOTED. WILL CONTINUE TO MONITOR.
[2019-03-21] VITALS (78 sets, daily range): BP systolic 86–124; BP diastolic 51–78
--- NOTE | 2019-03-21 00:05 | NUR ---
RE-ASSESS NEURO STATUS REMAINED SAME. VS STABLE. SUCTIONED. LOOKED COMFORTABLE
--- NOTE | 2019-03-21 01:54 | NUR ---
Respiratory note: ROUTINE VENT CHECK DONE AT THIS TIME. PT MOVING HANDS SLIGHTLY AND HAS MITTENS ON. INLINE SX CATHETER CHANGED AT THIS TIME. KIMBERLY BAEZ AT BEDSIDE WILL CONTINUE TO MONITOR.
[2019-03-21] MEDS: FREE WATER GT SCH ×6 (01:55→17:50)
[2019-03-21] MEDS: SOD CHL 0.45% WITH 20MEQ KCL 1,000 ML IV SCH ×4 (01:55→23:24)
--- NOTE | 2019-03-21 03:00 | NUR ---
TRANSFERRED TO SPECIALTY AIR BED MATTRESS
--- NOTE | 2019-03-21 03:10 | NUR ---
Patient bathe/linen change Patient given sponge bath. Skin integrity assessed for any changes. Linens changed. Patient repositioned for comfort.
--- NOTE | 2019-03-21 04:08 | NUR ---
Respiratory note: END OF SHIFT VENT CHECK. NO VENT CHANGES MADE. WILL HAVE DAY SHIFT CONTINUE TO MONITOR.
[2019-03-21 04:35] LABS: Basophils # (auto) 0 uL; Basophils % (auto) 0.1 % (0.0-2.0); Eosinophils # (auto) 0.1 uL; Eosinophils % (auto) 0.8 % (0.0-7.0); Hemoglobin 10.9 g/dL (13.5-17.5); Lymphocytes # (auto) 1.2 uL; Lymphocytes % (auto) 9.2 % (10.0-50.0); Mean Corpuscular Hemoglobin 28.6 pg (28.0-32.0); Mean Corpuscular Hgb Conc. 32.1 g/dL (32.0-36.0); Mean Corpuscular Volume 89.2 fL (80.0-100.0); Monocytes # (auto) 0.4 uL; Monocytes % (auto) 2.9 % (0.0-12.0); Neutrophils # (auto) 11.8 uL; Nucleated Red Blood Cells % 0.1 %; Platelet Count (auto) 89 10^3/uL (140-450); Red Blood Cells 3.81 10^6/uL (4.5-5.90); Red Cell Distribution Width 17.6 % (11.8-14.3); White Blood Cell 13.5 10^3/uL (4.4-10.8)
[2019-03-21 05:09] LABS: Potassium 3.9 mmol/L (3.5-5.1)
[2019-03-21 05:14] LABS: BUN/Creatinine Ratio 26.6; Calcium 8.6 mg/dL (8.5-10.1); Magnesium 1.9 mg/dL (1.6-2.6)
[2019-03-21] MEDS: ALBUTEROL SULF 2.5 MG/0.5ML(0.5%) NEB SOLN NEB SCH ×3 (05:45→19:07)
[2019-03-21] MEDS: IPRATROPIUM BROM 0.5 MG/2.5ML INH SOL NEB SCH ×3 (05:45→19:07)
[2019-03-21] MEDS: ACCU-CHEK COMFORT CURVE STRIP VI SCH ×4 (06:49→22:24)
[2019-03-21] MEDS: InsuLIN REG 1unit/0.01ml Soln (100units/ml) SC SCH ×4 (06:49→22:00)
--- NOTE | 2019-03-21 07:35 | NUR ---
OPENING NOTE Initial assessment complete Report received from Danelle HARRIS, care assumed. Pupils are equal and reactive with cough/reflex intact. Patient opens eyes spontaneously and is able to follow simple commands. Patient moves upper extremities, bet very weak. Afebrile at this time. Pulses palpable radial and pedal bilaterally. Edema noted on upper and lower extremities. SCD's in place. Lungs clear anteriorly. Oxygen saturation 96%, no distress noted. Thick creamy secretions suctioned from ETT. Bowel sounds present. Flexi-seal in place. Goodwin catheter present, patent, and secured below bladder. See skin/wound assessment. Extremities off loaded on pillows. HOB greater than 30 degrees, alarms in place. Bed locked in lowest position, will continue to monitor.
[2019-03-21] MEDS: cefTRIAXone 1GM/50ML D5W 50 ML IV SCH (08:45)
[2019-03-21] MEDS: BELLADONNA ALKAL/OPIUM (16.2/30MG) RECT SUPP PR SCH (10:00)
--- NOTE | 2019-03-21 10:07 | NUR ---
CPAP TRIAL Patient following commands. Patient placed on Cpap trial per MD order. Patient tolerating ventilator change well. Vital signs stable at this time.
[2019-03-21] MEDS: FAMOTIDINE (10MG/ML) 2ML VL IV SCH (10:11)
[2019-03-21] MEDS: POTASSIUM EFFERVESENT TAB 25 MEQ PO SCH (10:11)
[2019-03-21] MEDS: METOPROLOL TARTRATE 50 MG TAB PO SCH ×2 (10:12→22:31)
[2019-03-21] MEDS: NYSTATIN TOPICAL POWDER 15GM TOP SCH ×2 (10:12→22:31)
[2019-03-21] MEDS: AMIODARONE HCL 200 MG TAB PO SCH (10:12)
--- NOTE | 2019-03-21 11:00 | NUR ---
VISITOR Patient friend Cammy at bedside. Patient keeping eyes open and tolerating cpap trial. RT at bedside.
[2019-03-21] MEDS: MIDAZOLAM DRIP 50 mg/50mL 50 ML IV SCH (12:09)
--- NOTE | 2019-03-21 12:15 | NUR ---
MD VISIT: PCP at bedside assessing patient. MD reviewing chart.
--- NOTE | 2019-03-21 12:35 | NUR ---
PAGED paged regarding Cpap trial ABG and weaning parameters. MD aware. MD ordered for patient to be extubated. RT notified.
--- NOTE | 2019-03-21 13:00 | NUR ---
MD VISIT: PULMONOLOGY at bedside assessing patient. Awaiting RT to extubate. Patient resting with no s/s of distress.
[2019-03-21] MEDS: DexMEDEtomidine 400 MCG in D5W 5% 96 ML IV SCH (13:01)
--- NOTE | 2019-03-21 13:04 | NUR ---
MD VISIT:NEUROLOGY MD reviewing chart. No new orders received at this time.
[2019-03-21] MEDS: PROPOFOL 100 ML IV SCH (13:07)
--- NOTE | 2019-03-21 13:30 | NUR ---
RT EXTUBATE PATIENT Patient extubated by RT per order. Patient placed on cool mist mask at 40% Fio2. Patient oxygen saturation 97%, no signs of distress or stridor noted. Will continue to monitor.
[2019-03-21] MEDS: FLUCONAZOLE 200MG/100ML 100 ML IV SCH (14:24)
--- NOTE | 2019-03-21 15:03 | NUR ---
VISITOR Patient sons at bedside.
[2019-03-21] MEDS: NOREPINEPHRINE 8 MG/250ML KIT 250 ML IV SCH (15:15)
--- NOTE | 2019-03-21 15:32 | NUR ---
ELIMINATION/WOUND CARE Patient had moderate liquid bowel movement leak around flexiseal. Patient given partial bed bath and full linen change. Patient tolerated activity fair. No distress noted. Sacral wound care performed. New Optifoam and z-guard applied. Patient repositioned on side, HOB elevated, and all extremities off loaded on pillows. Bed locked in lowest position, HOB elevated, and call light within reach. Will continue to monitor.
--- NOTE | 2019-03-21 17:16 | NUR ---
PAGED called for downgrade orders. Orders obtained for EDDIE status. Family at bedside, they are aware patient will be moved later this evening.
--- NOTE | 2019-03-21 18:49 | NUR ---
MD VISIT: CARDIOLOGY at bedside. MD reviewing chart.
--- NOTE | 2019-03-21 19:28 | NUR ---
REPORT Report given to Ceci HARRIS, care endorsed.
--- NOTE | 2019-03-21 19:45 | NUR ---
Opening Shift Note Received report from day shift RN. Received patient laying in bed watching tv. Pt has unclear speech, although able to assess neuro status as pt knows his name and that he is in the hospital at this time. Pt is unaware of time and situation. Will randomly blurt out garbled confused sentences. Left subclavian central line with 3 ports. Patent and flushes easily with good blood return. Right nare NGT still in place in case pt can not swallow post extubation earlier today. Full assessment done, see interventions. Goodwin catheter draining to gravity with yellow cloudy urine and sediment. Pt currently on 3lpm nasal cannula with no s/s of respiratory distress noted. Flexi-seal intact draining liquid brown bm. Pt able to verbalize understanding to call for assist, call light within reach. All alarms on and audible. Pt in full view of RN.
[2019-03-21 21:28] LABS: BUN/Creatinine Ratio 26.6; Calcium 8.4 mg/dL (8.5-10.1); Potassium 3.6 mmol/L (3.5-5.1)
[2019-03-21] MEDS: INSULIN LANTUS (GLARGINE) 1 /0.01ml (100units/ml) SC SCH (22:00)
--- NOTE | 2019-03-21 23:30 | NUR ---
Swallowing Pt having difficulty swallowing liquids. Will keep NGT in place. Suction at bedside.
[2019-03-22] MEDS: ALBUTEROL SULF 2.5 MG/0.5ML(0.5%) NEB SOLN NEB SCH ×4 (00:03→18:32)
[2019-03-22] MEDS: IPRATROPIUM BROM 0.5 MG/2.5ML INH SOL NEB SCH ×4 (00:03→18:32)
[2019-03-22 00:11] VITALS: BP 111/72
[2019-03-22] MEDS: FREE WATER GT SCH ×5 (01:00→14:00)
[2019-03-22 03:57] VITALS: BP 119/72
[2019-03-22 05:49] LABS: Basophils # (auto) 0 uL; Basophils % (auto) 0.2 % (0.0-2.0); Eosinophils # (auto) 0.1 uL; Eosinophils % (auto) 0.8 % (0.0-7.0); Hematocrit 31.1 % (41.0-53.0); Hemoglobin 10.4 g/dL (13.5-17.5); Lymphocytes # (auto) 0.9 uL; Lymphocytes % (auto) 11.7 % (10.0-50.0); Mean Corpuscular Hemoglobin 29.9 pg (28.0-32.0); Mean Corpuscular Hgb Conc. 33.5 g/dL (32.0-36.0); Mean Corpuscular Volume 89.4 fL (80.0-100.0); Monocytes # (auto) 0.2 uL; Monocytes % (auto) 2.6 % (0.0-12.0); Neutrophils # (auto) 6.3 uL; Neutrophils % (auto) 84.7 % (37.0-80.0); Nucleated Red Blood Cells % 0.1 %; Platelet Count (auto) 86 10^3/uL (140-450); Red Blood Cells 3.47 10^6/uL (4.5-5.90); Red Cell Distribution Width 17.1 % (11.8-14.3); White Blood Cell 7.5 10^3/uL (4.4-10.8)
[2019-03-22 06:04] LABS: Calcium 8.3 mg/dL (8.5-10.1); Magnesium 1.8 mg/dL (1.6-2.6); Potassium 3.4 mmol/L (3.5-5.1)
[2019-03-22 06:06] LABS: BUN/Creatinine Ratio 27.3
[2019-03-22] MEDS: ACCU-CHEK COMFORT CURVE STRIP VI SCH ×4 (06:29→22:00)
[2019-03-22] MEDS: InsuLIN REG 1unit/0.01ml Soln (100units/ml) SC SCH ×4 (06:29→23:06)
[2019-03-22] MEDS: DexMEDEtomidine 400 MCG in D5W 5% 96 ML IV SCH (06:40)
--- NOTE | 2019-03-22 06:43 | NUR ---
Pt swallowing better when thickener is added to water. NO S/S of distress noted
--- NOTE | 2019-03-22 07:22 | NUR ---
End of shift note Report given to day shift RN to assume care.
--- NOTE | 2019-03-22 08:00 | NUR ---
Opening Shift Note Assumed care of patient, awake and alert. Patient A&Ox2. Patient on the monitor. Patient on 3L NC saturation 98%. IV left subclavian TLC running 1/2NS w/20MEq potassium at 120ml/hr patent, clean, dry, and intact. SCD bilateral. NG tube right nares secured and placement checked, gastric juices noted and air heard in stomach. Goodwin to gravity. Flexi seal in place and no leaking noted from around tube. No S/S of distress/SOB or pain. Instructed on POC and to call for assist. Bed locked and in the lowest position, side rails up x2, call light with in reach. Patient on specialty bed. Patient NPO at this time. Will continue to monitor.
[2019-03-22] MEDS: BELLADONNA ALKAL/OPIUM (16.2/30MG) RECT SUPP PR SCH (10:00)
[2019-03-22] MEDS: METOPROLOL TARTRATE 50 MG TAB PO SCH ×2 (10:00→23:08)
[2019-03-22] MEDS: FAMOTIDINE (10MG/ML) 2ML VL IV SCH (10:00)
[2019-03-22] MEDS: cefTRIAXone 1GM/50ML D5W 50 ML IV SCH (10:00)
--- NOTE | 2019-03-22 10:00 | NUR ---
Medication dosages, usages, and side effects explained to patient. Patient verbalized understanding. Will continue to monitor.
[2019-03-22] MEDS: SOD CHL 0.45% WITH 20MEQ KCL 1,000 ML IV SCH (10:01)
[2019-03-22] MEDS: AMIODARONE HCL 200 MG TAB PO SCH (10:01)
[2019-03-22] MEDS: NYSTATIN TOPICAL POWDER 15GM TOP SCH ×2 (10:02→23:34)
--- NOTE | 2019-03-22 10:15 | NUR ---
Dr. Vaughan at bedside. Assessed Patient ability to swallow. No signs of choking or aspiration noted with ice chips then water and jello. New orders to D/C NGT and order 2G cardiac/1800ADA mechanical soft diet. Will continue to monitor.
--- NOTE | 2019-03-22 11:00 | NUR ---
NGT removed, Patient tolerated. Will continue to monitor.
[2019-03-22 11:55] VITALS: BP 114/68
[2019-03-22] MEDS: MIDAZOLAM DRIP 50 mg/50mL 50 ML IV SCH (11:59)
[2019-03-22] MEDS: PROPOFOL 100 ML IV SCH (11:59)
--- NOTE | 2019-03-22 12:30 | NUR ---
Nutrition Follow-up Notes Wt.: 128.4 kg today. Pt's successfully extubated yesterday, on oxygen via nasal cannula, asleep, no signs of distress noted earlier. Pt's off from EN support, was NPO earlier, noted to start today on Mechanical Soft Consistent Standard Carb: 60 gms/meal, Cardiac: 2 gms Na diet with adequate PO intake aeb % ave. consumed meals (x6) in last 2.5 days. Est. Needs based on AdBW (87 kg): 8327-4447 kcal (20-25 kcal/kgAdBW), and 87-113 gms/day (1.0-1.3 gms/kgAdBW d/t severe hypoalbuminemia).Will continue to monitor pertinent labs and reassess nutrient need prn Labs: Gluc 152 H, Na 148 H, K 3.4 L, Cl 116 H, BUN 36 H, Ca 8.3 L; HbA1c >14.0 H, Tpro 6.1 L, Alb 1.7 L Skin: Jomar scale 12, high risk, pt's sacrum MASD per senior commissary agent. Pls refer to latest cafe or restaurant manager's notes for further details re: tx plans. GI: Pt had 200 ml stool output this morning per senior commissary agent. PES: Altered nutrition related lab values r/t current/chronic medical condition aeb hyperglycemia, hypernatremia, hypokalemia, elev. BUN, HbA1c, hypocalcemia and severe hypoalbuminemia Obesity r/t food intake more than body requirement aeb 177% IBW, BMI 51.8 kg/m2 and increased body adiposity Will continue to monitor PO intake, skin status, pertinent labs and weight trend. F/u in 3 to 5 days. Rec.: 1.) Continue close supervision during meals. 2.) If Albumin continues trending down, consider Prostat 1 pkt BID. 3.) Consider daily MVI with minerals and Asc acid 500 mgs BID. 4.) Refer pt to CDE/RD for further nutrition education and weight monitoring upon discharge. 5.) Continue current plan of care.
--- NOTE | 2019-03-22 12:45 | NUR ---
Patient sitting up in bed eating lunch with assistance from Boaz. Patient having trouble chewing mechanical soft diet. Will speak with Dr. Beauchamp about changing it to purred. Will continue to monitor.
--- NOTE | 2019-03-22 14:30 | NUR ---
Patient resting at this time. No S/S of pain/SOB or distress at this time. Will continue to monitor.
--- NOTE | 2019-03-22 14:51 | NUR ---
Reassessment Pt was downgraded to ICU and no longer intubated so SW asked that pt the assessment questions since pt's family wasn't that aware of recent functioning before hospital. Pt's family stated that pt wears depends and changes them himself. SW questioned pt on whether he is able to go to the bathroom on his own, pt stated that he can but wears depends in case of accidents. 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 Pt stated that he was ambulatory and didn't use DME prior to admit but was unsure of current ability since he hasn't walked while in the hospital. Pt would benefit from a PT eval. Pt stated that he plans to return home upon d/c and feels capable of taking care of himself in the home again. Pt stated that, even if needed, he doesn't have family members that could help out. Pt stated that his Primary doctor is Rahat, pt was very tired and had some slurred speech. Addendum: 03/22/19 at 1457 by AGAPITO SCHMITZ Amended: Links added.
[2019-03-22] MEDS: NOREPINEPHRINE 8 MG/250ML KIT 250 ML IV SCH (15:15)
[2019-03-22] MEDS: FLUCONAZOLE 200MG/100ML 100 ML IV SCH (15:28)
[2019-03-22 15:45] VITALS: BP 101/61
--- NOTE | 2019-03-22 17:00 | NUR ---
Dr. Beauchamp at bedside.
[2019-03-22] MEDS ORDERED: SOD CHL 0.45% WITH 20MEQ KCL 1,000 ML IV SCH (17:15)
[2019-03-22] MEDS ORDERED: FREE WATER GT SCH (17:15)
--- NOTE | 2019-03-22 17:30 | NUR ---
Dr. Emmanuel at bedside.
--- NOTE | 2019-03-22 17:45 | NUR ---
Urine sample sent to lab.
[2019-03-22 18:08] LABS: Urine Bacteria FEW /hpf (None Seen); Urine Blood 1+ /uL (Negative); Urine Hyaline Cast FEW /lpf (0 - 2); Urine Mucus FEW (None Seen); Urine Specific Gravity 1.011 (1.001-1.035); Urine WBC 472 /hpf (0 - 3); Urine WBC Clumps PRESENT /hpf (None Seen)
[2019-03-22] MEDS: POTASSIUM EFFERVESENT TAB 25 MEQ PO SCH ×2 (18:13→21:00)
--- NOTE | 2019-03-22 18:30 | NUR ---
End of Shift Note Patient sitting up in bed eating dinner with assistance from Boaz HOGUE. Patient A&Ox2. Patient on the monitor. Patient on 3L NC saturation 97%. IV left subclavian TLC TKO patent, clean, dry, and intact. SCD bilateral. Goodwin to gravity. Flexi seal in place and no leaking noted from around tube. No S/S of distress/SOB or pain. Bed locked and in the lowest position, side rails up x2, call light with in reach. Patient on specialty bed. Report to be given to warehouse shift supervisor RN. Will continue to monitor.
--- NOTE | 2019-03-22 19:30 | NUR ---
Opening Shift Note Assumed care of patient in room 261. Patient is awake and alert, but shows periods of confusion with mumbling. Connected to oxygen by nasal canula and saturating above 98%. No S/S of distress/SOB or pain. Instructed on POC and to call for assist with call light.
[2019-03-22 20:00] VITALS: BP 97/55
[2019-03-22] MEDS: INSULIN LANTUS (GLARGINE) 1 /0.01ml (100units/ml) SC SCH (22:00)
[2019-03-22] MEDS: MAGNESIUM SULFATE 1GM/100ML 100 ML IV SCH (23:08)
[2019-03-22] MEDS: POTASSIUM CHL 20MEQ/100ML 100 ML IV SCH (23:09)
[2019-03-23] VITALS (8 sets, daily range): BP systolic 92–125; BP diastolic 63–76
[2019-03-23] MEDS: MAGNESIUM SULFATE 1GM/100ML 100 ML IV SCH (00:19)
[2019-03-23] MEDS: POTASSIUM CHL 20MEQ/100ML 100 ML IV SCH (00:47)
[2019-03-23] MEDS: IPRATROPIUM BROM 0.5 MG/2.5ML INH SOL NEB SCH ×4 (00:51→17:52)
[2019-03-23] MEDS: ALBUTEROL SULF 2.5 MG/0.5ML(0.5%) NEB SOLN NEB SCH ×4 (00:51→17:52)
--- NOTE | 2019-03-23 01:00 | NUR ---
Patient repositioned Pillows on one side to offset weight.
--- NOTE | 2019-03-23 01:54 | NUR ---
Patient resting Was able to speak to hospitalist and received order for pain medication. Will administer when patient request it.
--- NOTE | 2019-03-23 05:00 | NUR ---
BED BATH AND LINEN CHANGE PATIENT REPOSITIONED WITH NEW GOWN AND LINES. NEW OPTIFOAM WITH Z GUARD IN PLACE.
[2019-03-23 05:11] LABS: Basophils # (auto) 0 uL; Basophils % (auto) 0.4 % (0.0-2.0); Eosinophils # (auto) 0.1 uL; Hematocrit 31.2 % (41.0-53.0); Hemoglobin 10.4 g/dL (13.5-17.5); Lymphocytes # (auto) 0.8 uL; Mean Corpuscular Hemoglobin 29.5 pg (28.0-32.0); Mean Corpuscular Hgb Conc. 33.4 g/dL (32.0-36.0); Mean Corpuscular Volume 88.3 fL (80.0-100.0); Monocytes # (auto) 0.1 uL; Monocytes % (auto) 2.3 % (0.0-12.0); Neutrophils # (auto) 5.1 uL; Neutrophils % (auto) 83.3 % (37.0-80.0); Nucleated Red Blood Cells % 0.1 %; Platelet Count (auto) 88 10^3/uL (140-450); Red Blood Cells 3.53 10^6/uL (4.5-5.90); Red Cell Distribution Width 16.9 % (11.8-14.3); White Blood Cell 6.1 10^3/uL (4.4-10.8)
[2019-03-23 05:37] LABS: Calcium 8.6 mg/dL (8.5-10.1); Magnesium 2.3 mg/dL (1.6-2.6); Potassium 3.6 mmol/L (3.5-5.1)
[2019-03-23 05:39] LABS: BUN/Creatinine Ratio 22.7
[2019-03-23] MEDS: ACCU-CHEK COMFORT CURVE STRIP VI SCH ×4 (06:36→21:44)
[2019-03-23] MEDS: InsuLIN REG 1unit/0.01ml Soln (100units/ml) SC SCH ×4 (06:36→21:44)
--- NOTE | 2019-03-23 08:00 | NUR ---
Dr Emmanuel at bedside, updated on patient's status. Patient seen and examined. No new orders at this time.
--- NOTE | 2019-03-23 08:00 | NUR ---
Opening Shift Note Assumed care of patient, awake and oriented x2, re-oriented to time and place. No S/S of distress/SOB or pain. Patient saturation 99% at 3 LPM oxygen via nasal cannula. See interventions for complete assessment. Bed locked on low position, side rails up x2, bed alarms on at all times, call gallardo within reach, instructed on POC and to call for assist PRN, will continue to monitor for changes Q1hr and PRN.
[2019-03-23] MEDS: FAMOTIDINE (10MG/ML) 2ML VL IV SCH (09:39)
[2019-03-23] MEDS: cefTRIAXone 1GM/50ML D5W 50 ML IV SCH (09:39)
[2019-03-23] MEDS: POTASSIUM EFFERVESENT TAB 25 MEQ PO SCH ×2 (09:39→21:43)
[2019-03-23] MEDS: AMIODARONE HCL 200 MG TAB PO SCH (09:40)
[2019-03-23] MEDS: METOPROLOL TARTRATE 50 MG TAB PO SCH ×2 (09:40→21:43)
[2019-03-23] MEDS: BELLADONNA ALKAL/OPIUM (16.2/30MG) RECT SUPP PR SCH (10:00)
--- NOTE | 2019-03-23 10:00 | NUR ---
Unable to administer [place], patient has flexi seal.
[2019-03-23] MEDS: NYSTATIN TOPICAL POWDER 15GM TOP SCH ×2 (10:53→21:44)
--- NOTE | 2019-03-23 10:54 | NUR ---
Patient sitting on edge of bed with Joseph PT, fall precautions in place. Patient tolerated well.
[2019-03-23] MEDS: FLUCONAZOLE 200MG/100ML 100 ML IV SCH (13:34)
--- NOTE | 2019-03-23 15:20 | NUR ---
Dr Beauchamp at bedside, updated on patient's status. Patient seen and examined. Received verbal order to change diet from puree to mechanically soft. Verbal orders read back and verified. Will carry out.
--- NOTE | 2019-03-23 19:54 | NUR ---
RECEIVED BED ASSIGNMENT TRANSFER TO BED 203.
--- NOTE | 2019-03-23 20:00 | NUR ---
ADMITTED FOR DKA , ALOC, POSSIBLE UTI WITH SEPTIC SHOCK. INTUBATED, EXTUBATED 03/21/2019. ON 2LNP. O2 SATURATION 100%. ORIENTED TO SELF. DISORIENTED TO YEAR, PRESIDENT AND WHERE HE IS. REORIENTED HIM. INFORMED OF THE PLAN OF CARE AND TRANSFER TO THE TELEMETRY FLOOR. ON A SPECIAL BED. HAS A SKIN TEAR, OPEN DECUBITUS ON COCCYX. OPTIFOAM REMOVED AND SHOWED A LARGE AMOUNT OF SEROSANGUINOUS FLUID. AREA CLEANED WITH A CHG WIPE AND Z GUARD APPLIED. NEW OPTIFOAM APPLIED. FLEXASEAL REMOVED. PASSING FLATUS. NEW PAD ON BED. PUPILS ARE 6 AND REACTIVE. SPEECH CLEAR. LUNGS CLEAR. ABDOMEN SOFT, ROUND AND LARGE. ARCHER IN PLACE DRAINING CLEAR YELLOW LIQUID TO DOWN DRAIN BAG. DID WELL WITH DINNER. SKIN TEAR LEFT HIP. PLAN IS FOR DISCHARGE TOMORROW TO A REHAB FACILITY. MCCABE. DOES NOT DO WELL AT HELPING YOU TURN. IS ABLE TO LIFT ARMS UP OFF BED. ABLE TO BEND KNEES APPROXIMATELY 15%.
--- NOTE | 2019-03-23 21:35 | NUR ---
REPORT CALLED TO KIMBERLY CHAWLA.
[2019-03-23] MEDS: INSULIN LANTUS (GLARGINE) 1 /0.01ml (100units/ml) SC SCH (21:44)
--- NOTE | 2019-03-23 22:05 | NUR ---
PATIENT TRANSPORTED TO ROOM 203.
--- NOTE | 2019-03-23 22:10 | NUR ---
TRANSFER: Received report from EDDIE Sally HARRIS. Assumed care of patient. Patient is alert to self. Patient on specialty bed. Bed in lowest position, rails x2 up and call light within reach. Updated on plan of care. Will continue to monitor. Addendum: 03/23/19 at 2239 by DENTON REYES RN Patient on tele box #[id number] running SR [id number].
[2019-03-24] MEDS: IPRATROPIUM BROM 0.5 MG/2.5ML INH SOL NEB SCH ×4 (00:23→17:51)
[2019-03-24] MEDS: ALBUTEROL SULF 2.5 MG/0.5ML(0.5%) NEB SOLN NEB SCH ×4 (00:23→17:51)
[2019-03-24 05:00] VITALS: BP 133/77
[2019-03-24 05:14] LABS: Basophils # (auto) 0 uL; Basophils % (auto) 0.6 % (0.0-2.0); Eosinophils # (auto) 0.1 uL; Eosinophils % (auto) 2.3 % (0.0-7.0); Hematocrit 31.5 % (41.0-53.0); Hemoglobin 10.7 g/dL (13.5-17.5); Lymphocytes % (auto) 18.9 % (10.0-50.0); Mean Corpuscular Hemoglobin 29.7 pg (28.0-32.0); Mean Corpuscular Volume 87.5 fL (80.0-100.0); Monocytes # (auto) 0.1 uL; Monocytes % (auto) 2.6 % (0.0-12.0); Neutrophils # (auto) 3.8 uL; Neutrophils % (auto) 75.6 % (37.0-80.0); Nucleated Red Blood Cells % 0.1 %; Platelet Count (auto) 97 10^3/uL (140-450); Red Cell Distribution Width 16.5 % (11.8-14.3); White Blood Cell 5.1 10^3/uL (4.4-10.8)
[2019-03-24 05:35] LABS: BUN/Creatinine Ratio 16.9; Calcium 8.5 mg/dL (8.5-10.1); Potassium 3.2 mmol/L (3.5-5.1)
[2019-03-24] MEDS: InsuLIN REG 1unit/0.01ml Soln (100units/ml) SC SCH ×4 (06:54→21:58)
[2019-03-24] MEDS: ACCU-CHEK COMFORT CURVE STRIP VI SCH ×4 (06:54→22:13)
--- NOTE | 2019-03-24 07:08 | NUR ---
CLOSING SHIFT NOTE: Report given to oncoming nurse. Endorsed care of patient.
[2019-03-24 09:00] VITALS: BP 111/63
[2019-03-24 09:14] VITALS: BP 133/77
[2019-03-24] MEDS: cefTRIAXone 1GM/50ML D5W 50 ML IV SCH (09:24)
[2019-03-24] MEDS: METOPROLOL TARTRATE 50 MG TAB PO SCH ×2 (11:06→22:12)
[2019-03-24] MEDS: POTASSIUM EFFERVESENT TAB 25 MEQ PO SCH ×2 (11:07→22:12)
[2019-03-24] MEDS: AMIODARONE HCL 200 MG TAB PO SCH (11:07)
[2019-03-24] MEDS: FAMOTIDINE (10MG/ML) 2ML VL IV SCH (11:07)
[2019-03-24] MEDS: SOD CHL 0.45% WITH 20MEQ KCL 1,000 ML IV SCH ×2 (11:16→21:20)
[2019-03-24] MEDS: BELLADONNA ALKAL/OPIUM (16.2/30MG) RECT SUPP PR SCH (11:24)
[2019-03-24] MEDS: NYSTATIN TOPICAL POWDER 15GM TOP SCH ×2 (11:24→22:12)
--- NOTE | 2019-03-24 12:05 | NUR ---
Opening Shift Note Assumed care of patient, pt is a&ox1. pain to buttocks as stated by patient. Instructed on POC and to call for assist PRN, will continue to monitor for changes Q1hr and PRN.
[2019-03-24 12:30] VITALS: BP 133/82
[2019-03-24] MEDS ORDERED: POTASSIUM CHL 20 Meq TABLET PO ONE (14:30)
--- NOTE | 2019-03-24 14:30 | NUR ---
ROUNDS Dr Beauchamp at bedside for rounds, new orders received and followed through. Patient updated on plan of care, verbalized understanding.
[2019-03-24] MEDS: FLUCONAZOLE 200MG/100ML 100 ML IV SCH (14:46)
--- NOTE | 2019-03-24 16:00 | NUR ---
D/C planning Per SS consult for SNF placement for rehab. Contact [facility]:) fax:( [phone]) faxed medical records requesting for contracted facilities. Will follow up tomorrow.
[2019-03-24 16:58] VITALS: BP 117/65
--- NOTE | 2019-03-24 17:15 | NUR ---
PULMONARY Dr Emmanuel at bedside for Pulmonary consult, no new orders at this time.
--- NOTE | 2019-03-24 18:20 | NUR ---
CARDIAC Dr Vang at bedside for Cardiology follow up, no new orders received at this time.
--- NOTE | 2019-03-24 19:13 | NUR ---
Care endorsed to KIMBERLY [place], night nurse.
--- NOTE | 2019-03-24 20:00 | NUR ---
OPEN NOTE assumed care of pt, upon entering room pt awake and alert to self. pt on 2L nc no distress noted or expressed. pt denies any pain at this time. pt has chaudhary in place, secured, hanging below waist level and draining cloudy yellow urine. pt updated on plan of care, no questions at this time. pt bed locked, low and 2x rails up. pt sitting high fowlers, needing minimum assist with meal. pt call light in reach. will round q1hr and prn. this nurse encouraged pt to call as needed.
[2019-03-24 21:58] VITALS: BP 142/83
[2019-03-24] MEDS: INSULIN LANTUS (GLARGINE) 1 /0.01ml (100units/ml) SC SCH (22:13)
[2019-03-25] MEDS: IPRATROPIUM BROM 0.5 MG/2.5ML INH SOL NEB SCH ×3 (00:21→11:00)
[2019-03-25] MEDS: ALBUTEROL SULF 2.5 MG/0.5ML(0.5%) NEB SOLN NEB SCH ×3 (00:21→11:00)
[2019-03-25 04:46] LABS: Basophils # (auto) 0 uL; Basophils % (auto) 0.8 % (0.0-2.0); Eosinophils # (auto) 0.2 uL; Eosinophils % (auto) 3.2 % (0.0-7.0); Hematocrit 30.1 % (41.0-53.0); Hemoglobin 9.9 g/dL (13.5-17.5); Lymphocytes # (auto) 1.2 uL; Lymphocytes % (auto) 22.4 % (10.0-50.0); Mean Corpuscular Hemoglobin 28.9 pg (28.0-32.0); Mean Corpuscular Hgb Conc. 32.9 g/dL (32.0-36.0); Mean Corpuscular Volume 87.8 fL (80.0-100.0); Monocytes # (auto) 0.2 uL; Monocytes % (auto) 3.5 % (0.0-12.0); Neutrophils # (auto) 3.7 uL; Neutrophils % (auto) 70.1 % (37.0-80.0); Nucleated Red Blood Cells % 0.1 %; Platelet Count (auto) 94 10^3/uL (140-450); Red Blood Cells 3.43 10^6/uL (4.5-5.90); Red Cell Distribution Width 16.3 % (11.8-14.3); White Blood Cell 5.3 10^3/uL (4.4-10.8)
[2019-03-25 05:00] VITALS: BP 149/84
[2019-03-25 05:06] LABS: Albumin 1.8 g/dL (3.4-5.0); Calcium 8.3 mg/dL (8.5-10.1); Potassium 3.8 mmol/L (3.5-5.1)
[2019-03-25 05:11] LABS: BUN/Creatinine Ratio 15.6; Bilirubin, Total 0.5 mg/dL (0.2-1.0); Phosphorus 2.8 mg/dL (2.5-4.90); Total Protein 5.8 g/dL (6.4-8.2)
[2019-03-25] MEDS: SOD CHL 0.45% WITH 20MEQ KCL 1,000 ML IV SCH (06:13)
[2019-03-25] MEDS: ACCU-CHEK COMFORT CURVE STRIP VI SCH ×3 (06:13→16:35)
[2019-03-25] MEDS: InsuLIN REG 1unit/0.01ml Soln (100units/ml) SC SCH ×3 (06:13→16:36)
[2019-03-25] MEDS: cefTRIAXone 1GM/50ML D5W 50 ML IV SCH (08:35)
[2019-03-25 09:00] VITALS: BP 122/70
--- NOTE | 2019-03-25 09:04 | NUR ---
Opening Shift Note Assumed care of patient, pt is alert to himself. No S/S of distress/SOB or pain. Triple lumen IV in tact and working. Goodwin in tact and urine is flowing, no complications. pt is up and responsive to commands. Instructed on POC and to call for assist PRN, will continue to monitor for changes Q1hr and PRN.
[2019-03-25] MEDS: FAMOTIDINE (10MG/ML) 2ML VL IV SCH (10:19)
[2019-03-25] MEDS: AMIODARONE HCL 200 MG TAB PO SCH (10:19)
[2019-03-25] MEDS: POTASSIUM EFFERVESENT TAB 25 MEQ PO SCH (10:20)
[2019-03-25] MEDS: METOPROLOL TARTRATE 50 MG TAB PO SCH (10:21)
[2019-03-25] MEDS: NYSTATIN TOPICAL POWDER 15GM TOP SCH (10:22)
--- NOTE | 2019-03-25 12:15 | NUR ---
PULMONARY Dr Emmanuel at bedside for Pulmonary follow up. New orders received and followed through.
--- NOTE | 2019-03-25 12:19 | NUR ---
Nutrition Follow-up Notes Wt.: 126.0 kg today. Pt's on oxygen via nasal cannula, asleep, no signs of distress noted earlier currently on on Mechanical Soft 2 gms Na diet with adequate PO intake aeb 90% ave. consumed meals (x6) in last 2.5 days. Est. Needs based on AdBW (87 kg): 7964-0026 kcal (20-25 kcal/kgAdBW), and 87-113 gms/day (1.0-1.3 gms/kgAdBW d/t severe hypoalbuminemia).Will continue to monitor pertinent labs and reassess nutrient need prn Labs: Gluc 118 H, Cl 111 H, BUN 30 H, Ca 8.3 L; HbA1c >14.0 H, Tpro 6.1 L, Alb 1.7 L Skin: Jomar scale 12, high risk, pt's sacrum MASD per supervisor feed house. Pls refer to latest rn clinical documentation specialist's notes for further details re: tx plans. GI: Pt had 1 BM yesterday per supervisor feed house. PES: Altered nutrition related lab values r/t current/chronic medical condition aeb hyperglycemia, hypernatremia, hypokalemia, elev. BUN, HbA1c, hypocalcemia and severe hypoalbuminemia Obesity r/t food intake more than body requirement aeb 177% IBW, BMI 51.8 kg/m2 and increased body adiposity Will continue to monitor PO intake, skin status, pertinent labs and weight trend. F/u in 3 to 5 days. Rec.: 1.) Pls enter order for Prostat 1 pkt BID, already e-signed approved by . 2.) Consider Mechanical Soft Consistent Standard Carb: 60 gms/meal Fat, 2 gms Na diet. 3.) Consider daily MVI with minerals and Asc acid 500 mgs BID. 4.) Continue close supervision during meals. 5.) Refer pt to CDE/RD for further nutrition education and weight monitoring upon discharge. 6.) Continue current plan of care.
[2019-03-25 13:00] VITALS: BP 110/61
[2019-03-25 13:36] VITALS: BP 110/61
--- NOTE | 2019-03-25 16:55 | NUR ---
D/C Planning Followed up called to [facility] Ph:) spoke to tactical air control party manager Alexandra. Per Alexandra [facility] has accepted. Contact [facility] Ph:( [phone]) Fax:) faxed medical records. Per Catherine from [facility] patient has been accepted to room [address] accepting MD Dr. Zenia Salazar. Transportation has been arrange with [facility] via [employer] with oxygen. KIMBERLY Olmedo was informed. Addendum: 03/25/19 at 1659 by RUBIO SCHMITZ Amended: Links added.
[2019-03-25 17:00] VITALS: BP 124/73
--- NOTE | 2019-03-25 17:05 | NUR ---
Report called to LESLIE Zuniga, at [facility].
--- NOTE | 2019-03-25 17:15 | NUR ---
Discharge instructions given as ordered. Encourage to follow up with PMD as instructed. All questions and concerns addressed. Patient verbalized understanding. Medication reconciliation form completed and copy given to patient. Left upper chest wall central line removed with catheter intact, pressure dressing applied, patient discharged with Urethral Goodwin catheter. Patient taken to [facility] via [facility] on 2 LPM via nasal cannula with all personal belongings. No distress noted at time of departure.
[2019-03-26] MEDS ORDERED: FLUCONAZOLE 100 MG TAB PO SCH (10:00)
[2019-03-26] MEDS ORDERED: LEVOFLOXACIN 500 MG TAB PO SCH (10:00)
== END 2019-03-25 17:25 | DRG 870 ==
LOC: EDBD 10:58 → ER 11:01 → TELE 11:02 → ICU WEST 18:15 → DOU IN ICU 03-21 19:40 → TELE-CENTR 03-23 22:20
PROVIDERS: ADMIT Internal Medicine; ATTEND Internal Medicine Geriatric Medicine
PROC: 02HV33Z Insertion of Infusion Device into Superior Vena Cava, Percutaneous Approach (ICD-10-PCS; principal; 2019-03-12)
PROC: 5A1955Z Respiratory Ventilation, Greater than 96 Consecutive Hours (ICD-10-PCS; 2019-03-12)
PROC: 0BH17EZ Insertion of Endotracheal Airway into Trachea, Via Natural or Artificial Opening (ICD-10-PCS; 2019-03-12)
PROC: 5A1935Z Respiratory Ventilation, Less than 24 Consecutive Hours (ICD-10-PCS; 2019-03-22)
PROC: 0BH17EZ Insertion of Endotracheal Airway into Trachea, Via Natural or Artificial Opening (ICD-10-PCS; 2019-03-22)
DX: A41.9 Sepsis, unspecified organism (principal); R65.21 Severe sepsis with septic shock; E11.10 Type 2 diabetes mellitus with ketoacidosis without coma; N17.0 Acute kidney failure with tubular necrosis; J18.9 Pneumonia, unspecified organism; I50.33 Acute on chronic diastolic (congestive) heart failure; J96.01 Acute respiratory failure with hypoxia; G92 Toxic encephalopathy; N13.6 Pyonephrosis; E87.1 Hypo-osmolality and hyponatremia; E87.0 Hyperosmolality and hypernatremia; D68.59 Other primary thrombophilia; I48.19 Other persistent atrial fibrillation; J44.0 Chronic obstructive pulmonary disease with (acute) lower respiratory infection; Z99.11 Dependence on respirator [ventilator] status; E11.22 Type 2 diabetes mellitus with diabetic chronic kidney disease; E83.39 Other disorders of phosphorus metabolism; E87.6 Hypokalemia; N18.9 Chronic kidney disease, unspecified; D69.6 Thrombocytopenia, unspecified; D64.9 Anemia, unspecified; E83.42 Hypomagnesemia; B95.61 Methicillin susceptible Staphylococcus aureus infection as the cause of diseases classified elsewhere; R33.9 Retention of urine, unspecified; R31.0 Gross hematuria; E11.65 Type 2 diabetes mellitus with hyperglycemia
CPT/HCPCS: 36415; 36556; 36600; 70450; 71045; 74176; 76775; 80048; 80053; 80202; 80307; 80320; 81001; 82010; 82140; 82150; 82306; 82550; 82565; 82570; 82805; 82962; 83036; 83605; 83690; 83735; 83970; 84100; 84132; 84156; 84300; 84439; 84443; 84484; 84550; 85007; 85025; 85027; 85610; 85730; 87040; 87070; 87077; 87081; 87086; 87088; 87186; 87205; 93005; 93306; 94002; 94003; 94640; 95819; 96361; 96365; 96367; 96375; 97110; 97530; 99291; A4565; G0378; J0330; J0696; J1450; J1815; J1956; J2185; J2248; J2250; J2543; J2704; J3480; J3490; J7060; P9047